=== PATIENT | female | born 1950 | race Caucasian/White ===

== ENCOUNTER 2017-01-11 08:25 | Inpatient (IN) ==
[2017-01-04 15:07] LABS: Appearance,Urine CLEAR; Bilirubin,Urine NEG (NEG); Color,Urine YELLOW; Glucose,Urine (UA) NEGATIVE (NEG); Leukocyte Esterase,Urine NEG /uL (NEG); Nitrate,Urine NEG (NEG); Protein,Urine NEG (NEG); Specific Gravity,Urine 1.019 (1.000-1.035); Urine Blood NEG mg/dL (<0.03)
[2017-01-04 15:14] LABS: Basophils # (Auto) 0 K/mcL (0.0-0.3); Basophils % (Auto) 0.5 % (0.0-2.0); Eosinophils # (Auto) 0.1 K/mcL (0.0-0.7); Granulocytes % (Auto) 55.4 % (38.0-78.0); Lymphocytes % (Auto) 33.3 % (15.5-49.0); Mean Cell Volume 77.8 fL (80.0-100.0); Mean Corpuscular Hemoglobin 25.7 pg (26.0-34.0); Monocytes # (Auto) 0.5 K/mcL (0.1-0.9); Monocytes % (Auto) 8.8 % (1.0-12.0); Platelet Count 296 K/mcL (140-440); RBC 4.58 M/mcL (4.00-5.20); Red Cell Distribution Width 15.8 % (11.5-14.5)
[2017-01-04 15:27] LABS: Blood Urea Nitrogen 25 mg/dl (8-23)
[~2017-01-11 08:25] MED LIST: ACETAMINOPHEN 500 MG TABLET PO SCH; CELECOXIB 200 MG CAPSULE PO SCH; KETOROLAC 30 MG, ROPIVACAINE HCL/PF 49.5 ML, EPINEPHrine 0.5 MG, 0.9 % SODIUM CHLORIDE ... IJ ONE; PREGABALIN 75 MG CAPSULE PO SCH; ceFAZolin 1 GM VIAL IV SCH
[2017-01-11] MEDS ORDERED: SCOPOLAMINE 1 PATCH PATCH TOPICAL ONE (09:00)
[2017-01-11] MEDS ORDERED: oxyCODONE 10 MG TAB.ER.12H PO SCH (09:45)
[2017-01-11] MEDS ORDERED: IPRATROPIUM/ALBUTEROL 3 ML AMPUL.NEB NEB ONE (10:35)
[2017-01-11] MEDS ORDERED: fentaNYL 100 MCG/2 ML VIAL IV ONE (10:56)
[2017-01-11] MEDS ORDERED: DEXAMETHASONE 10 MG/ML VIAL ONE (10:56)
[2017-01-11] MEDS ORDERED: ONDANSETRON 4 MG/2 ML VIAL ONE (10:56)
[2017-01-11] MEDS ORDERED: GENTAMICIN SULFATE 800 MG/20 ML VIAL IR ONE (11:56)
--- NOTE | 2017-01-11 12:34 | Brief Operative Note ---
Date of procedure: 01/11/17 Pre-op diagnosis: Left knee djd Post-op diagnosis: same Procedure: left tka with robot Grafts/Implants: Yes Anesthesia: GETA Findings: severe djd Surgeon: Craig Larsen Senior Editor: Israel Aguilar Estimated blood loss (cc): 20 Tourniquet Time (Minutes): 53 Specimens Removed/Pathology: none sent Condition: stable Disposition: PACU
[2017-01-11] MEDS ORDERED: MAGNESIUM HYDROXIDE 30 ML ORAL.SUSP PO PRN (12:35)
[2017-01-11] MEDS ORDERED: HYDROmorphone 2 MG/ML SYRINGE IV PRN ×2 (12:35→12:38)
[2017-01-11] MEDS ORDERED: TRANEXAMIC ACID 1,000 MG/10 ML VIAL IV SCH (12:35)
[2017-01-11] MEDS ORDERED: POLYETHYLENE GLYCOL 3350 17 GM PACKET PO PRN (12:35)
[2017-01-11] MEDS ORDERED: ONDANSETRON 4 MG/2 ML VIAL IV PRN ×2 (12:35→12:38)
[2017-01-11] MEDS ORDERED: BISACODYL 10 MG SUPP.RECT PR PRN (12:35)
[2017-01-11] MEDS ORDERED: ACETAMINOPHEN 325 MG TABLET PO PRN (12:35)
[2017-01-11] MEDS ORDERED: FLEETS ADULT ENEMA PR PRN (12:35)
[2017-01-11] MEDS ORDERED: BENZOCAINE/MENTHOL 1 LOZENGE PO PRN ×2 (12:35→12:38)
[2017-01-11] MEDS ORDERED: IPRATROPIUM/ALBUTEROL 3 ML AMPUL.NEB NEB PRN (12:38)
[2017-01-11] MEDS ORDERED: diphenhydrAMINE 50 MG/ML VIAL IV PRN (12:38)
[2017-01-11] MEDS ORDERED: ePHEDrine 50 MG/ML AMPUL IV PRN (12:38)
[2017-01-11] MEDS ORDERED: fentaNYL 100 MCG/2 ML VIAL IV PRN (12:38)
[2017-01-11] MEDS ORDERED: MEPERIDINE 25 MG/ML SYRINGE IV PRN (12:38)
[2017-01-11] MEDS ORDERED: METOPROLOL TARTRATE 5 MG/5 ML VIAL IV PRN (12:38)
[2017-01-11] MEDS ORDERED: METHOCARBAMOL 1,000 MG/10 ML VIAL IV PRN (12:38)
[2017-01-11] MEDS ORDERED: FLUMAZENIL 0.1 MG/ML ML IV PRN (12:38)
[2017-01-11] MEDS ORDERED: ATROPINE SULFATE 0.4 MG/ML VIAL IV PRN (12:38)
[2017-01-11] MEDS ORDERED: NALOXONE HCL 0.4 MG/ML VIAL IV PRN (12:38)
[2017-01-11] MEDS ORDERED: LACTATED RINGERS 1,000 ML IV SCH (12:45)
[2017-01-11] MEDS ORDERED: LABETALOL 5 MG/ML ML IV ONE (13:34)
--- NOTE | 2017-01-11 13:35 | Operative Note ---
DATE OF OPERATION: 01/11/2017 PREOPERATIVE DIAGNOSIS: Left knee degenerative arthritis. POSTOPERATIVE DIAGNOSIS: Left knee degenerative arthritis. PROCEDURE: Left total knee arthroplasty using MAUDE robot. SURGEON: Craig Larsen MD MANAGER COMPANY: Israel Aguilar PA-C ANESTHESIA: General LMA anesthesia. COMPLICATIONS: None. TOTAL TOURNIQUET TIME: 53 minutes. ESTIMATED BLOOD LOSS: About 20 mL. IMPLANTS: Cemented [place] components with a 9 mm poly insert and a 33 mm patellar button. DESCRIPTION OF PROCEDURE: The patient was brought to the operating room and put to sleep with general LMA anesthesia. Once asleep, the patient had the left leg sterilely prepped and draped in the usual sterile fashion. Once we confirmed the operative site, and timeout was performed we then exsanguinated the leg and inflated the tourniquet to 275 mmHg. With this, we made a midline incision through the [place] and exposed the joint showing severe arthritis in both medial and lateral compartments. Once this was done, we this then had two pins above and below the knee. The center of hip rotation was set, 30 points on the femur, 30 points on the tibia and intraarticular pins. The medial and lateral malleolus were registered and then we balanced the knee, both at 15 and 90 degrees of flexion. Once balanced perfectly, we then adjusted the implants. We then brought in the robot and made the distal cut, posterior chamfer cut, posterior and anterior and then anterior chamfer. We then made the tibial cut. All the bony fragments were removed. We removed the remnants of the meniscus and any spurs posteriorly. We then placed the tibial baseplate with rotation set by the preoperative plan. This was punched into place. We then also trialed the size 2 femur and a 9 mm poly. This fit very nicely. We prepared the patella measuring 22 mm in thickness, cut to 13 mm and then cemented into place a 33 mm patella, a 3 tibial baseplate with perfect for rotation and a size 2 femoral component with a 9 mm poly. Excess cement was removed. The posterior capsule was injected with 50 mL of post-inject formula. Tourniquet was deflated. Bleeding was controlled and the mid vastus approach was closed after thorough irrigation and closed this with #1 Stratafix x2, and then the skin was closed with 2-0 Vicryl and adhesive closure. The patient tolerated this well without complication. ESTEVAN:jesse Job ID: [id number] Doc ID: [id number] Craig Larsen MD
--- NOTE | 2017-01-11 13:54 | XRay Report ---
CLINICAL INFORMATION: Reason for Exam:Post-Op Total Knee COMPARISON: None. FINDINGS: Total knee prostheses is anatomically aligned. There is no osseous abnormality. Periarticular gas and soft tissue swelling seen as expected IMPRESSION: Negative Interpreted and Authenticated by: Garret Block 01/11/17
[2017-01-11] MEDS: HYDROcodone/APAP 10/325MG TABLET PO PRN ×2 (15:42→21:22)
[2017-01-11] MEDS: 0.9 % SODIUM CHLORIDE 10 ML SYRINGE IV SCH ×2 (16:27→21:00)
[2017-01-11] MEDS: 0.45 % SODIUM CHLORIDE 1,000 ML IV SCH (16:27)
[2017-01-11] MEDS: KETOROLAC 15 MG/ML VIAL IV SCH (18:33)
[2017-01-11] MEDS: ceFAZolin 1 GM VIAL IV SCH (20:15)
[2017-01-11] MEDS: cloNIDine HCL 0.1 MG TABLET PO SCH (21:00)
[2017-01-11] MEDS ORDERED: SENNOSIDES 1 TABLET PO SCH (21:00)
[2017-01-11] MEDS: DOCUSATE SODIUM 100 MG CAPSULE PO SCH (21:00)
[2017-01-11] MEDS: ASPIRIN 325 MG ENTERIC COATED TABLET PO SCH (21:00)
[2017-01-11] MEDS ORDERED: TEMAZEPAM 15 MG CAPSULE PO PRN (21:00)
[2017-01-11] MEDS: METOPROLOL SUCCINATE 25 MG TAB.XL.24H PO SCH (21:00)
[2017-01-12] MEDS: KETOROLAC 15 MG/ML VIAL IV SCH ×3 (00:19→11:52)
[2017-01-12] MEDS: ceFAZolin 1 GM VIAL IV SCH (04:29)
[2017-01-12] MEDS: 0.45 % SODIUM CHLORIDE 1,000 ML IV SCH (05:09)
[2017-01-12] MEDS: 0.9 % SODIUM CHLORIDE 10 ML SYRINGE IV SCH ×3 (05:50→12:48)
--- NOTE | 2017-01-12 07:42 | Orthopedic Progress Note ---
Subjective Patient information: Note initiated : 01/12/17 at 7:41 am Service Date, if different from initiated Date: [] Patient: Melodie Gaspar 66 y/o F admitted on 01/11/17 for Left Total Knee Arthroplasty with Robotic. Chief Complaint: [Pt is stable this morning on post operative day 1 without any significant concerns or complaints. Patients vital signs have remained stable. Patients dressing is dry and exhibits a grossly intact neurovascular and neuromotor exam. Patients 10 point ROS is otherwise negative. ] Objective Vital signs: Vital Signs Temp Pulse Resp BP BP BP Pulse Ox 01/12/17 03:54 97.7 F 58 L 18 108/55 92 01/12/17 00:00 97.9 F 66 16 113/48 92 01/11/17 19:42 97.9 F 75 16 187/88 91 01/11/17 16:35 96 01/11/17 15:52 162/94 96 01/11/17 15:00 168/105 96 01/11/17 14:30 173/100 97 01/11/17 14:15 166/101 95 01/11/17 14:02 94 01/11/17 14:00 188/84 95 01/11/17 13:45 176/94 97 01/11/17 13:42 97.8 F 88 14 176/83 94 01/11/17 13:31 86 13 191/87 94 01/11/17 13:26 90 13 194/92 97 01/11/17 13:21 82 12 163/86 99 01/11/17 13:16 92 H 13 159/101 100 01/11/17 13:11 94 H 15 166/81 100 01/11/17 13:06 95 H 14 199/82 100 01/11/17 13:01 97.9 F 91 H 16 189/81 98 01/11/17 09:00 97 F 18 182/113 97 Intake and Output 01/11/17 01/12/17 01/12/17 21:59 05:59 13:59 Intake Total 420 / 420 0 / 0 Output Total 475 / 475 Balance -55 / -55 0 / 0 Intake: Oral 420 / 420 0 / 0 Output: Void Amount 475 / 475 Other: # Voids 1 1 Weight 214 lb Intake & Output: Intake & Output 01/11/17 01/12/17 01/12/17 21:59 05:59 13:59 Intake Total 420 / 420 0 / 0 Output Total 475 / 475 Balance -55 / -55 0 / 0 Weight 214 lb Intake: Oral 420 / 420 0 / 0 Output: Void Amount 475 / 475 Other: # Voids 1 1 Incision: Yes healing Incision clean and dry: Yes Dressing: Yes clean, Yes dry Weight bearing status: full Neurological exam IM: Yes motor sensory intact, Yes neurovascular intact Extremities exam IM: Yes Foot pink and warm, Yes neurovascular intact - Labs CBC & BMP: 01/12/17 04:45 01/04/17 13:52 Labs: Orthopedic Labs 01/04/17 13:52 PT 13.1 INR 1.0 APTT 27 01/12/17 01/04/17 04:45 13:52 Hgb 11.8 L Hct 29.0 L 35.7 L Assessment and Plan (1) Hx of total knee arthroplasty Patient has been educated regarding wound care and dressings, follow up recommendations, and medication use. We will f/u with the patient within 2-3 weeks for wound check. Status: Acute
--- NOTE | 2017-01-12 07:44 | Discharge Summary ---
Ortho Discharge - TKA - Patient Instructions Diet: Regular Diet Activity: activity as tolerated, weight bearing as tolerated Total Knee Protocol: For Total Knee: Start ROM LEV with stationary bike or rocking chair. Work on gaining full extension of knee. Posterior dislocation precautions provided. Hip abductor strengthening and gait training instructions provided. Apply Cryocuff as instructed. Dressing Care: May shower in 2 days Patient Education: Total Knee Replacement (DC) Additional Instructions: Discharge Instructions: Do the exercises at home that physical therapy gave you. [facility] [employer] [phone] APPOINTMENT: WednesdayJanuary 15 @ 10:00 AM Please arrive 15 minutes early. Your orders have been sent to them; Take your photo ID, insurance cards, and current medication list with you to your first physical therapy appointment. Take your prescription to [facility] any medication or equipment (such as walker, crutches, toilet riser or C.P.M.) Wear comfortable clothing for your physical therapy. Weight bearing as tolerated. CPM for home use. You have Dermabond (a dressing with a mesh-like appearance), leave open to air. You may start showering on post op day #2. The Dermabond dressing can get wet, do not scrub dressing. Pat dry. To avoid constipation while taking any narcotic pain medication, take an over the counter stool softener/laxative. Use your Cryocuff or ice packs as directed, on for 20 minutes at a time throughout the day. This and elevation will help with pain and swelling. Call your physician for fevers above 100.5 or pain not controlled by medication. Your prescriptions are with your discharge information. Some medications were electronically transmitted to your pharmacy of choice. - Problem Maintenance (1) Hx of total knee arthroplasty Status: Acute - Follow Up Plan Follow Up Appointments: Craig Larsen MD [Physician] - 01/28/17 1:40 pm Disposition: Home, Self-Care Prognosis: Good Rehab Potential: Good I certify that the patient requires SNF services: No Overall status at discharge: patient is progressing back to baseline - Orders For Discharge Prescriptions: Aspirin [Ecotrin] 325 mg PO BID #60 Docusate Sodium [Colace] 100 mg PO BID #60 capsule HYDROcodone/APAP 10/325MG [[place] 10/325Mg] 1 - 2 tab PO Q4HP PRN #75 tablet PRN Reason: Pain
[2017-01-12] MEDS: DOCUSATE SODIUM 100 MG CAPSULE PO SCH (08:43)
[2017-01-12] MEDS: cloNIDine HCL 0.1 MG TABLET PO SCH (08:43)
[2017-01-12] MEDS: METOPROLOL SUCCINATE 25 MG TAB.XL.24H PO SCH (08:43)
[2017-01-12] MEDS: ASPIRIN 325 MG ENTERIC COATED TABLET PO SCH (08:43)
[2017-01-12] MEDS: HYDROcodone/APAP 10/325MG TABLET PO PRN (08:55)
== END 2017-01-12 13:25 | disposition home or self-care (01) | DRG 470 ==
LOC: EDBD → MEDSUR 08:25
PROVIDERS: ADMIT Orthopaedic Surgery; ATTEND Orthopaedic Surgery

== ENCOUNTER 2017-03-08 11:00 | Inpatient (IN) ==
[2017-03-08 13:06] LABS: Appearance,Urine CLEAR; Bilirubin,Urine NEG (NEG); Color,Urine STRAW; Glucose,Urine (UA) NEGATIVE (NEG); Leukocyte Esterase,Urine NEG /uL (NEG); Nitrate,Urine NEG (NEG); Protein,Urine NEG (NEG); Specific Gravity,Urine 1.006 (1.000-1.035); Urine Blood NEG mg/dL (<0.03); Urobilinogen,Urine NEG (NEG)
[2017-03-08 14:29] LABS: Blood Urea Nitrogen 22 mg/dl (8-23)
[2017-03-08 14:57] LABS: Basophils # (Auto) 0 K/mcL (0.0-0.3); Basophils % (Auto) 0.4 % (0.0-2.0); Eosinophils # (Auto) 0.2 K/mcL (0.0-0.7); Eosinophils % (Auto) 3.4 % (0.0-7.0); Granulocytes % (Auto) 62.2 % (38.0-78.0); Lymphocytes # (Auto) 1.5 K/mcL (1.5-4.8); Lymphocytes % (Auto) 27.1 % (15.5-49.0); Mean Cell Volume 78.1 fL (80.0-100.0); Mean Corpuscular HGB Conc 32.5 g/dL (31.0-36.0); Mean Corpuscular Hemoglobin 25.4 pg (26.0-34.0); Monocytes # (Auto) 0.4 K/mcL (0.1-0.9); Monocytes % (Auto) 6.9 % (1.0-12.0); Platelet Count 298 K/mcL (140-440)
[2017-03-15] MEDS ORDERED: ACETAMINOPHEN 500 MG TABLET PO SCH (05:00)
[2017-03-15] MEDS ORDERED: ceFAZolin 1 GM VIAL IV SCH (05:00)
[2017-03-15] MEDS ORDERED: CELECOXIB 200 MG CAPSULE PO SCH (05:00)
[2017-03-15] MEDS ORDERED: oxyCODONE 10 MG TAB.ER.12H PO SCH (05:00)
[2017-03-15] MEDS ORDERED: PREGABALIN 75 MG CAPSULE PO SCH (05:00)
[2017-03-15] MEDS ORDERED: SCOPOLAMINE 1 PATCH PATCH TOPICAL ONE ×2 (06:10→08:30)
[2017-03-15] MEDS ORDERED: KETOROLAC 30 MG, ROPIVACAINE HCL/PF 49.5 ML, EPINEPHrine 0.5 MG, 0.9 % SODIUM CHLORIDE ... IJ SCH (06:30)
[2017-03-15] MEDS ORDERED: DEXAMETHASONE 10 MG/ML VIAL IV ONE (07:45)
[2017-03-15] MEDS ORDERED: ONDANSETRON 4 MG/2 ML VIAL IV ONE (07:45)
[2017-03-15] MEDS ORDERED: GLYCOPYRROLATE 0.2 MG/ML VIAL IV ONE (07:45)
[2017-03-15] MEDS ORDERED: LIDOCAINE HCL/PF 100 MG/5 ML SYRINGE IV ONE (07:45)
[2017-03-15] MEDS ORDERED: TRANEXAMIC ACID 1,000 MG/10 ML VIAL IV ONE ×2 (07:45→09:04)
[2017-03-15] MEDS ORDERED: ROPIVACAINE HCL/PF 20 ML VIAL IJ ONE (07:45)
[2017-03-15] MEDS ORDERED: MIDAZOLAM 2 MG/2 ML VIAL IV ONE (07:45)
[2017-03-15] MEDS ORDERED: PROPOFOL 200 MG/20 ML VIAL IV ONE (07:45)
[2017-03-15] MEDS ORDERED: GENTAMICIN SULFATE 800 MG/20 ML VIAL IR ONE (08:02)
[2017-03-15] MEDS ORDERED: diphenhydrAMINE 50 MG/ML VIAL IV PRN (08:34)
[2017-03-15] MEDS ORDERED: FLUMAZENIL 0.1 MG/ML ML IV PRN (08:34)
[2017-03-15] MEDS ORDERED: PROMETHAZINE 25 MG/ML VIAL IV PRN (08:34)
[2017-03-15] MEDS ORDERED: MEPERIDINE 25 MG/ML SYRINGE IV PRN (08:34)
[2017-03-15] MEDS ORDERED: MEPERIDINE 50 MG/ML SYRINGE IM PRN (08:34)
[2017-03-15] MEDS ORDERED: LACTATED RINGERS 250 ML IV PRN (08:34)
[2017-03-15] MEDS ORDERED: NALOXONE HCL 0.4 MG/ML VIAL IV PRN (08:34)
[2017-03-15] MEDS ORDERED: ePHEDrine 50 MG/ML AMPUL IV PRN (08:34)
[2017-03-15] MEDS ORDERED: METHOCARBAMOL 1,000 MG/10 ML VIAL IV PRN (08:34)
[2017-03-15] MEDS ORDERED: fentaNYL 100 MCG/2 ML VIAL IV PRN (08:34)
[2017-03-15] MEDS ORDERED: BENZOCAINE/MENTHOL 1 LOZENGE PO PRN ×2 (08:34→09:04)
[2017-03-15] MEDS ORDERED: ONDANSETRON 4 MG/2 ML VIAL IV PRN ×2 (08:34→09:04)
[2017-03-15] MEDS ORDERED: IPRATROPIUM/ALBUTEROL 3 ML AMPUL.NEB NEB PRN (08:34)
[2017-03-15] MEDS ORDERED: PROMETHAZINE 25 MG/ML VIAL IM PRN (08:34)
[2017-03-15] MEDS ORDERED: LACTATED RINGERS 1,000 ML IV SCH (08:45)
--- NOTE | 2017-03-15 09:03 | Brief Operative Note ---
Date of procedure: 03/15/17 Pre-op diagnosis: Right knee djd Post-op diagnosis: same Procedure: right tka Grafts/Implants: Yes Anesthesia: GETA Findings: right knee djd Complications: none Complications Description: 03/15/17 09:03 none Surgeon: Craig Larsen Channel Program Manager: Israel Aguilar Estimated blood loss (cc): 20 Tourniquet Time (Minutes): 45 Specimens Removed/Pathology: none sent Condition: stable Disposition: PACU
[2017-03-15] MEDS ORDERED: HYDROmorphone 2 MG/ML SYRINGE IV PRN (09:04)
[2017-03-15] MEDS ORDERED: ACETAMINOPHEN 325 MG TABLET PO PRN (09:04)
[2017-03-15] MEDS ORDERED: TEMAZEPAM 15 MG CAPSULE PO PRN (09:04)
[2017-03-15] MEDS ORDERED: FLEETS ADULT ENEMA PR PRN (09:04)
[2017-03-15] MEDS ORDERED: BISACODYL 10 MG SUPP.RECT PR PRN (09:04)
[2017-03-15] MEDS ORDERED: POLYETHYLENE GLYCOL 3350 17 GM PACKET PO PRN (09:04)
[2017-03-15] MEDS ORDERED: MAGNESIUM HYDROXIDE 30 ML ORAL.SUSP PO PRN (09:04)
--- NOTE | 2017-03-15 09:34 | Operative Note ---
DATE OF OPERATION: 03/15/2017 PREOPERATIVE DIAGNOSIS: Right knee degenerative arthritis. POSTOPERATIVE DIAGNOSIS: Right knee degenerative arthritis. PROCEDURE: Right total knee arthroplasty using the [employer] robot. SURGEON: Craig Larsen MD [employer]TE MACHINE OPERATOR: Israel Aguilar PA-C ANESTHESIA: General LMA anesthesia. COMPLICATIONS: None. TOTAL TOURNIQUET TIME: 45 minutes. ESTIMATED BLOOD LOSS: Minimal. IMPLANTS: Per nurse's note. DESCRIPTION OF PROCEDURE: The patient was brought to the operating room and put to sleep with general LMA anesthesia. Once asleep, the patient had the right leg sterilely prepped and draped and the tourniquet inflated to 250 pounds of pressure. We made a midline incision, a mid vastus approach performed. We then brought in the robot after registering the center of hip rotation, the medial and lateral malleoli, registered the intra-articular pins and 30 points on the femur and tibia. We balanced the knee perfectly and then the robot made the cuts on the femur and tibia. Once this bone was cut we then removed this bone and any osteophytes and debris. We trialed the implants. These were set by the robot. Rotation and alignment was perfect. The knee started at about 19 degrees of hyperextension. This was brought to 0 degrees with an 11 mm poly, perfectly straight, perfectly balanced. We irrigated and implanted the implants with cement. Once dry, we closed the mid vastus approach with #1 Stratafix and closed the skin with 2-0 Vicryl and adhesive closure. The patient tolerated this well. No complication. TOURNIQUET TIME: 45 minutes. RBH:jesse Job ID: [id number] Doc ID: [id number] Craig Larsen MD
--- NOTE | 2017-03-15 09:49 | XRay Report ---
CLINICAL INFORMATION: Postop total knee prostheses COMPARISON: None. FINDINGS: Total knee prosthesis is anatomically aligned. No osseous abnormality. Periarticular gas and soft tissue swelling seen as expected IMPRESSION: Negative Interpreted and Authenticated by: Garret Block 03/15/17
[2017-03-15] MEDS: 0.45 % SODIUM CHLORIDE 1,000 ML IV SCH ×2 (10:30→20:33)
[2017-03-15] MEDS: KETOROLAC 15 MG/ML VIAL IV SCH ×3 (12:09→23:31)
[2017-03-15] MEDS: 0.9 % SODIUM CHLORIDE 10 ML SYRINGE IV SCH ×2 (14:52→23:31)
[2017-03-15] MEDS: ceFAZolin 1 GM VIAL IV SCH ×2 (15:19→23:31)
[2017-03-15] MEDS: HYDROcodone/APAP 10/325MG TABLET PO PRN (15:19)
[2017-03-15] MEDS: METOPROLOL SUCCINATE 25 MG TAB.XL.24H PO SCH (20:41)
[2017-03-15] MEDS: cloNIDine HCL 0.1 MG TABLET PO SCH (20:41)
[2017-03-15] MEDS: DOCUSATE SODIUM 100 MG CAPSULE PO SCH (20:41)
[2017-03-15] MEDS: ASPIRIN 325 MG ENTERIC COATED TABLET PO SCH (20:42)
[2017-03-15] MEDS ORDERED: SENNOSIDES 1 TABLET PO SCH (21:00)
[2017-03-16] MEDS: 0.9 % SODIUM CHLORIDE 10 ML SYRINGE IV SCH (05:38)
[2017-03-16] MEDS: KETOROLAC 15 MG/ML VIAL IV SCH ×2 (05:38→11:31)
[2017-03-16] MEDS: HYDROcodone/APAP 10/325MG TABLET PO PRN ×3 (05:38→10:06)
[2017-03-16] MEDS: 0.45 % SODIUM CHLORIDE 1,000 ML IV SCH (06:29)
--- NOTE | 2017-03-16 07:34 | Orthopedic Progress Note ---
Subjective Patient information: Note initiated : 03/16/17 at 7:33 am Service Date, if different from initiated Date: [] Patient: Melodie Gaspar 66 y/o F admitted on 03/15/17 for Arthroplasty, Knee, Total Right [place]. Chief Complaint: [Pt is stable this morning on post operative day 1 without any significant concerns or complaints. Patients vital signs have remained stable. Patients dressing is dry and exhibits a grossly intact neurovascular and neuromotor exam. Patients 10 point ROS is otherwise negative. ] Objective Vital signs: Vital Signs Temp Pulse Resp BP Pulse Ox 03/16/17 04:00 92 03/16/17 03:55 98.7 F 53 L 16 172/81 96 03/15/17 23:45 97.8 F 55 L 16 161/78 96 03/15/17 21:00 94 03/15/17 20:00 97.4 F 57 L 18 152/78 94 03/15/17 17:00 98 03/15/17 15:37 98.4 F 18 138/61 96 03/15/17 13:15 98.1 F 16 123/72 97 03/15/17 12:15 144/73 97 03/15/17 11:45 139/71 96 03/15/17 11:15 146/79 100 03/15/17 11:00 159/91 97 03/15/17 10:45 153/82 95 03/15/17 10:30 97.2 F 14 149/81 91 03/15/17 09:55 81 16 162/71 100 03/15/17 09:40 97.8 F 81 15 160/73 100 03/15/17 09:27 97.8 F 89 23 H 141/67 100 03/15/17 09:04 96 Intake and Output 03/15/17 03/16/17 03/16/17 21:59 05:59 13:59 Intake Total 800 / 800 100 / 100 Output Total 650 / 650 850 / 850 Balance 150 / 150 -750 / -750 Intake: Oral 400 / 400 100 / 100 GI Tube Flush 400 / 400 Output: Void Amount 650 / 650 850 / 850 Other: Meal Dinner Percent of Meal Consumed 100% Feeding Ability Independent # Voids 1 Weight 212 lb Intake & Output: Intake & Output 03/15/17 03/16/17 03/16/17 21:59 05:59 13:59 Intake Total 800 / 800 100 / 100 Output Total 650 / 650 850 / 850 Balance 150 / 150 -750 / -750 Weight 212 lb Intake: Oral 400 / 400 100 / 100 GI Tube Flush 400 / 400 Output: Void Amount 650 / 650 850 / 850 Other: Meal Dinner Percent of Meal Consumed 100% Feeding Ability Independent # Voids 1 Incision: Yes healing Incision clean and dry: Yes Dressing: Yes clean, Yes dry Weight bearing status: full Neurological exam IM: Yes motor sensory intact, Yes neurovascular intact Extremities exam IM: Yes Foot pink and warm, Yes neurovascular intact - Labs CBC & BMP: 03/16/17 04:57 03/08/17 11:24 Labs: Orthopedic Labs 03/08/17 11:25 PT 13.1 INR 1.0 APTT 03/16/17 03/08/17 04:57 11:25 Hgb 11.7 L Hct 28.5 L 35.9 L Assessment and Plan (1) Hx of total knee arthroplasty The patient has been educated regarding dressing care, Physical Therapy recommendations, home exercises, restrictions, and follow up appointments. The patient has had all necessary DME prescribed. The patient has remained stable during their hospital course. The patient was discharge with a stable exam. Status: Acute
--- NOTE | 2017-03-16 07:36 | Discharge Summary ---
Ortho Discharge - TKA - Patient Instructions Diet: Regular Diet Activity: activity as tolerated, weight bearing as tolerated Total Knee Protocol: For Total Knee: Start ROM LEV with stationary bike or rocking chair. Work on gaining full extension of knee. Posterior dislocation precautions provided. Hip abductor strengthening and gait training instructions provided. Apply Cryocuff as instructed. Dressing Care: May shower in 2 days Patient Education: Total Knee Replacement (DC) - Problem Maintenance (1) Hx of total knee arthroplasty Status: Acute - Follow Up Plan Follow Up Appointments: Craig Larsen MD [Physician] - 03/30/17 10:10 am Disposition: Home, Self-Care Prognosis: Good Rehab Potential: Good I certify that the patient requires SNF services: No Overall status at discharge: patient is progressing back to baseline - Orders For Discharge Prescriptions: Aspirin [Ecotrin] 325 mg PO BID #60 tab.ec Docusate Sodium [Colace] 100 mg PO BID #60 cap HYDROcodone/APAP 10/325MG [[place] 10/325Mg] 1 - 2 tab PO Q4HP PRN #75 tab PRN Reason: Pain Level 3-6
[2017-03-16] MEDS: ASPIRIN 325 MG ENTERIC COATED TABLET PO SCH (08:43)
[2017-03-16] MEDS: METOPROLOL SUCCINATE 25 MG TAB.XL.24H PO SCH (08:43)
[2017-03-16] MEDS: DOCUSATE SODIUM 100 MG CAPSULE PO SCH (08:43)
[2017-03-16] MEDS: cloNIDine HCL 0.1 MG TABLET PO SCH (08:44)
[2017-03-16] MEDS ORDERED: FLU VACC QS2017-18 36MOS UP/PF 60 MCG/0.5 ML SYRINGE IM ONE (10:00)
[2017-03-16] MEDS ORDERED: PNEUMOCOCCAL 23-VAL P-SAC VAC 0.5 ML VIAL IM ONE (10:00)
== END 2017-03-16 14:10 | disposition home or self-care (01) | DRG 470 ==
LOC: MEDSUR 03-15 05:03
PROVIDERS: ADMIT Orthopaedic Surgery; ATTEND Orthopaedic Surgery

== ENCOUNTER 2022-01-05 09:05 | Inpatient (IN) ==
[2021-12-30 16:29] LABS: Basophils # (Auto) 0.04 K/mcL (0.00-0.30); Basophils % (Auto) 0.7 % (0.0-2.0); Eosinophils % (Auto) 1.9 % (0.0-7.0); Hematocrit 43.4 % (34.1-44.9); Hemoglobin 13.3 g/dL (11.2-15.7); Lymphocytes # (Auto) 1.29 K/mcL (1.50-4.80); Lymphocytes % (Auto) 24.1 % (15.5-49.0); Mean Cell Volume 97.1 fL (80.0-100.0); Mean Corpuscular HGB Conc 30.6 g/dL (31.0-36.0); Mean Platelet Volume 10.2 fL (7.4-10.4); Monocytes # (Auto) 0.56 K/mcL (0.10-0.90); Monocytes % (Auto) 10.4 % (1.0-12.0); Neutrophils % (Auto) 62.7 % (38.0-78.0); Platelet Count 313 K/mcL (140-440); RBC 4.47 M/mcL (3.59-5.38); Red Cell Distribution Width 13.9 % (11.5-14.5); WBC 5.4 K/mcL (4.5-11.0)
[2021-12-30 17:29] LABS: Blood Urea Nitrogen 39 mg/dL (8-23); Calcium 9.5 mg/dL (8.6-10.4); Carbon Dioxide 26 mmol/L (22-30); Chloride 104 mmol/L (96-108); Glomerular Filtration Rate 32; Glucose 93 mg/dL (70-105)
[2021-12-30 18:17] LABS: Appearance,Urine Clear (Clear); Bacteria,Urine FEW /hpf (0); Bilirubin,Urine Negative (Negative); Color,Urine Yellow; Culture Indicated,Urine Yes; Glucose,Urine (UA) Negative (Negative); Ketones,Urine Negative (Negative); Leukocyte Esterase,Urine Small /uL (Negative); Mucus,Urine FEW /hpf; Nitrate,Urine Negative (Negative); PH,Urine 5.5 (5.0-9.0); Protein,Urine Negative (Negative); Specific Gravity,Urine 1.015 (1.000-1.035); Urine Blood Negative ery/mcL (Negative); Urine Hyaline Cast 36 /lph (0-2); Urine RBC 1 /hpf (0-3); Urine Squamous Epithelial Cell 1 /hpf (0-4); Urine WBC 4 /hpf (0-4); Urobilinogen,Urine Normal
--- NOTE | 2021-12-31 15:43 | EKG ---
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 Measurements Intervals [place] Rate: 46 P: -4 OR: 168 QRS: 9 QRSD: 116 T: 0 QT: 456 QTc: 399 Interpretive Statements Sinus bradycardia Nonspecific intraventricular conduction delay Low voltage, precordial leads Probable anteroseptal infarct, old Electronically Signed On 12-31-2021 15:43:24 PDT by Gume Thrasher D.O. /[email or web address]/[id number]
[~2022-01-05 09:05] MED LIST changes: +0.9 % SODIUM CHLORIDE 9 ML, KETOROLAC 30 MG, ROPIVACAINE HCL/PF 49.5 ML, EPINEPHrine 0.... IJ SCH; -KETOROLAC 30 MG, ROPIVACAINE HCL/PF 49.5 ML, EPINEPHrine 0.5 MG, 0.9 % SODIUM CHLORIDE ... IJ ONE; -ceFAZolin 1 GM VIAL IV SCH; +ceFAZolin 2 GM in DEXTROSE 5% IN WATER 50 ML IV SCH; +oxyCODONE 10 MG TAB.ER.12H PO SCH
--- OUTSIDE RECORDS SUMMARY | 2022-01-05 11:51 | External Medical Summary | Encounter Summary ---
:1950 Author Care Team Providers Name Role Phone Rip Casas MD Primary Care Provider [phone] Reason for Visit 3 mnth f/u CKD Assessment and Plan 1. Hyperlipidemia Follow up with labs then we will determ ine if dose change is needed pravastatin 20 mg tablet lipid panel, blood 2. Long-term drug therapy follow up labs renal function panel, serum 3. Benign essential hypertension Stable, continue current medication reg imen. furosemide 20 mg tablet Discussion Note 30 total time spent today by this tomasi jose juan for this patient, [id number] and non [id number] services combined. Patient educational handouts: No information available. Plan of Care Reminders Provider Appointments Follow up 30 03/02/2022 Rip Casas MD 10:00AM Lab Renal Function Panel, 11/25/2021 [facility] Serum (Lab) Lipid Panel, Blood 11/25/2021 [facility] (Lab) Referral None recorded. Procedures None recorded. Surgeries None recorded. Imaging None recorded. Medications Name Start Date alendronate 70 mg tablet TAKE 1 TABLET BY MOUTH ONCE WEEKLY allopurinol 100 mg tablet TAKE 1 TABLET BY MOUTH DAILY aspirin 81 mg chewable tablet Chew 1 tablet every day by oral route. Calcium 500 Daily clonidine HCl 0.1 mg tablet TAKE 1 TABLET BY MOUTH THREE TIMES DAILY (NEEDS APPT! ) colchicine 0.6 mg tablet Take one tablet by mouth daily furosemide 20 mg tablet TAKE 2 TABLETS BY MOUTH IN THE MORNING metoprolol tartrate 25 mg tablet TAKE 1 TABLET BY MOUTH TWICE DAILY multivitamin 2 daily potassium chloride ER 20 mEq tablet,extended release TAKE 1 TABLET BY MOUTH EVERY DAY pravastatin 20 mg tablet TAKE 1 TABLET BY MOUTH EVERY DAY AT BEDTIME prednisone 20 mg tablet Take 1 tablet every day by oral route in the morning for 6 days. Tylenol 500 mg capsule Take 2 tablets every day by oral route. Tylenol PM 2 at HS Vitamin D3 2000 IU Medications Administered None recorded. Vitals Height Weight BMI Blood Pressure 5 ft 2 in 201.9 lbs 36.9 kg/m2 146/70 mm[Hg] Results Lab Results Date Name Specimen Result Interpretation Description Value Range Status Address 11/25/2021 Renal BLOOD Sodium 143 135-145 Final [facility] Function mmol/L mmol/L Medical Panel, Center Serum (Lab): [address] [place] [address] BLOOD Potassium 4.5 3.5-5.1 Final [facility] mmol/L mmol/L [facility] (Lab): [address] [place] [address] BLOOD Chloride 107 98-107 Final [facility] mmol/L mmol/L [facility] (Lab): [address] [place] [address] BLOOD Total CO2 27 21-32 Final [facility] mmol/L mmol/L [facility] (Lab): [address] [place] [address] BLOOD Anion Gap 13.5 7.0-16.0 Final [facility] mmol/L mmol/L [facility] (Lab): [address] [place] [address] BLOOD Glucose 99 mg/dL 65-99 Final [facility] mg/dL [facility] (Lab): [address] [place] [address] BLOOD Calcium 9.00 8.90-10.3 Final [facility] mg/dL 0 mg/dL [facility] (Lab): [address] [place] [address] BLOOD Phosphorus 4.6 2.5-4.9 Final [facility] mg/dL mg/dL [facility] (Lab): [address] [place] [address] BLOOD Albumin 3.7 g/dL 3.5-5.0 Final [facility] g/dL [facility] (Lab): [address] [place] [address] BLOOD High Urea (BUN) 39 mg/dL 8-26 Final [facility] mg/dL [facility] (Lab): [address] [place] [address] BLOOD High Creatinine 1.35 0.60-1.30 Final [facility] mg/dL mg/dL [facility] (Lab): [address] [place] [address] BLOOD High BUN/creat 28.9 12.0-20.0 Final [place] Ratio ratio ratio [facility] (Lab): [address] [place] [address] BLOOD Egfr 47 Final [place] mL/min/1 Medical .73m2 Center (Lab): [address] [place] [address] BLOOD Egfr Header Final [facility] (Lab): [address] [place] [address] 11/25/2021 Lipid UNKNOWN Cholest 167 <=200 Final [place] Panel, mg/dL mg/dL Medical Blood Center (Lab): [address] [facility] UNKNOWN High Trigly 153 30-150 Final [place] mg/dL mg/dL [facility] Center (Lab): [address] [facility] UNKNOWN HDL-direct 47 mg/dL 29-89 Final [facility] mg/dL [facility] (Lab): [address] [facility] UNKNOWN LDL-direct 89 mg/dL 0-99 Final [place] mg/dL [facility] (Lab): [address] [facility] UNKNOWN Chol/hdl [address] [facility] (Lab): [address] [facility] UNKNOWN LDL/HDL 2 ratio Final [facility] (Lab): [address] [facility] UNKNOWN Lipid Final [facility] (Lab): [address] [facility] Allergies Code Code System Name Reaction Severity Onset 267 RxNorm Codeine Ringing in Ears Problems Name Status Onset Date Source Benign Essential Hypertension Active 07/27/2016 Abdominal Pain Active 07/27/2016 Osteoarthritis Active 11/10/2016 Bilateral Knee Pain Active 11/12/2016 Pyelonephritis Active 05/18/2017 Anemia Active 08/23/2017 Osteopenia Active 09/09/2017 Morbid Obesity Active 03/15/2019 Gout Active 08/28/2020 Chronic Kidney Disease Stage 3 Active 02/24/2021 Procedures Date Name Performed by 12/18/2016 Orthopedic Surgery Information not avai lable Notes: Lt. knee replacement. 7 Rt. knee 04/19/2006 Other Information not avai lable Notes: Gastric bypass 04/19/1999 Orthopedic Surgery Information not avai lable Notes: Back Surgery 09/17/1988 Hysterectomy Information not avai lable 04/19/1974 [employer] Surgery Information not avai lable Notes: 78 and 1980 03/19/1974 Cholecystectomy Information not avai lable Vaccine List Vaccine Type influenza, high dose seasonal 02/07/20190.5 mL influenza, recombinant, quadrIvalent,inj ectable, preservative free 10.5 mL Notes: COVID Pfizer 07/18/20, 08/08/20. B ooster Pfizer 02/22/21 Social History Tobacco Smoking Status Never Smoker What type of diet are you following? REGULAR Marital status Are you currently employed? N Are you blind or do you have Y difficulty seeing? How much tobacco do you chew? none Do you have an advanced directive? Y How many days in the past year have 0 you had a heavy drinking consumption (4+ female, 5+ male)? General stress level Low Difficulty reading? N What is your exercise level? Notes: [place]ks What is your level of alcohol Notes: R familia-once or twice a consumption? month Education Notes: [employer] Which illicit or recreational drugs none have you used? Are you deaf or do you have serious Y difficulty hearing? What is your level of caffeine Notes: 2-3 cups coffee a day consumption? Are there any guns present in your N home? 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 Yes Are you deaf or do you have serious difficulty hearing? ? Y es Past Encounters 11/25/2021 Hyperlipidemia; Long-term Drug Therapy; Benign Essential Hypertension Rip Casas MD: [address] [place] [address], [place] [id number], Ph. History of Present Illness Note: <div>Melodie is a 71 YOF with a hx of CKD, Hypertension, anemia. She is in to the clinic to f/u on her CKD. Pt states that she has been taking her BP and it has been staying the same. Pt reports feeling well with no concerns. </div> Review of Systems Comprehensive General Adult ROS Reported By: Patient Cardiovascular: Cardiovascular: no chest rosalba n, no palpitations Respiratory: Respiratory: no cough, no wh eezing, no shortness of breath Gastrointestinal: Gastrointestinal: no constip ation, no diarrhea Genitourinary: Genitourinary: no difficulty urinating, no increased frequency Neurologic: Neurologic: no loss of consc iousness, no weakness, no numbness, no seizures, no dizziness, no m igraines, no headaches, no tremor Physical Exam General Adult Exam - female Reported By: Patient Constitutional: General Appearance: healthy- appearing, well-developed, obese. Level of Distress: NAD. Ambulation : ambulation with cane Psychiatric: Insight: good judgement. Men mireya Status: active and alert, normal mood, normal affect. Orienta tion: to time, to place, to person. Memory: recent memory normal , remote memory normal Head: Head: normocephalic, atrauma tic Lungs: Respiratory effort: no dyspn ea. Auscultation: breath sounds normal, good air movement, CTA excep t as noted, no wheezing, no rales/crackles, no rhonchi Cardiovascular: Apical Impulse: not displace d. Heart Auscultation: RRR, normal S1, normal S2, no murmurs, no ru bs, no gallops. Neck vessels: no carotid bruits Breast: Breast Exam: patient deferre d exam Female : Female Exam: patient defe rred exam Musculoskeletal:: Motor Strength and Tone: nor mal motor strength, normal tone. Extremities: no cyanosis, no edema, no varicosities, no palpable cord Neurologic: Gait and Station: normal gai t, normal station. Cranial Nerves: grossly intact Skin: Inspection and palpation: no rash, no lesions, no ulcer, no abnormal nevi, no induration , no nodules, good turgor, no jaundice
--- OUTSIDE RECORDS SUMMARY | 2022-01-05 11:51 | External Medical Summary ---
:1950 Author Care Team Providers Name Role Phone RIP RIVERS MD Primary Care Provider [phone] Allergies Code Code System Name Reaction Severity Status Onset 2670 RxNorm Codeine Ringing in Ears Active Medications Name Status Start Date Stop Date Advil Liqui-Gel 200 mg capsule Completed 0 08/03/2017 2-4 daily alendronate 70 mg tablet Active Not holger ilable Aleve 220 mg capsule Completed 10/09/2019 Take by oral route. Aleve PM 220 mg-25 mg tablet Completed Take by oral route. allopurinol 100 mg tablet Active Not av ailable TAKE 1 TABLET BY MOUTH DAILY aspirin 81 mg chewable tablet Active No t available Chew 1 tablet every day by oral route. Calcium 500 Active Not available Daily cephalexin 500 mg capsule Completed 2017 ciprofloxacin 500 mg tablet Completed 07/18 clonidine HCl 0.1 mg tablet Active Not available colchicine 0.6 mg tablet Active Not holger ilable furosemide 20 mg tablet Active Not avai lable hydrocodone 10 mg-acetaminophen 325 mg tablet Completed 08/03/2017 hydrocodone 5 mg-acetaminophen 325 mg tablet Completed 05/18/2017 hydrocodone 7.5 mg-acetaminophen 325 mg tablet Completed 08/03/2017 iron 65 mg tablet Completed 07/11/2020 Take by oral route. metoprolol succinate ER 25 mg tablet,extended release 24 Complet ed 10/09/2019 hr metoprolol tartrate 25 mg tablet Active Not available TAKE 1 TABLET BY MOUTH TWICE DAILY multivitamin Active Not available 2 daily potassium chloride ER 20 mEq tablet,extended release Active Not available pravastatin 20 mg tablet Active Not holger ilable TAKE 1 TABLET BY MOUTH EVERY DAY AT BEDTIME prednisone 20 mg tablet Active Not avai lable tramadol 50 mg tablet Completed 08/03/2017 Tylenol 500 mg capsule Active Not avail able Take 2 tablets every day by oral route. Tylenol PM Active Not available 2 at HS Vitamin D3 Active Not available 1999 IU Problems Name Status Onset Date Source Benign [...] 09/17/1988 Hysterectomy Information not avai lable 04/19/1974 Supervisor Inspecting Surgery Information not avai lable Notes: 78 and 1980 03/19/1974 Cholecystectomy Information not avai lable 07/27/2016 CT, Abdomen + Pelvis, W/ Contrast [facility] [address] [place] [facility] [place] [id number] ([address]) 11/10/2016 XR, Knee, 4 or More View [facility] [address] [place] [id number] (Work Place) 08/03/2017 US, Duplex, Venous, Lower Extremity [facility] [address] [place] [id number] (Work Place) 10/09/2019 Dexa [facility] [address] [place] [facility] [place] [id number] (Work Place) 10/11/2019 MAMMO, Screening, Digital, Bilateral [facility] [address] [place] [facility] [id number] (Work Place) 10/08/2020 US, Kidney [facility] - [facility] [address], [place] [id number] (Work Place) Results Lab Results Date Name Specimen Result Interpretation Description Value Range Status Address 11/25/2021 Renal BLOOD Sodium 143 mmol/L 135-145 Final [facility] Function mmol/L Medical Panel, [facility] er (Lab): [address] [facility] BLOOD Potassium 4.5 mmol/L 3.5-5.1 Final [facility] mmol/L [facility] Center (Lab): [address] [facility] BLOOD Chloride 107 mmol/L 98-107 Final [facility] mmol/L [facility] (Lab): [address] [facility] BLOOD Total CO2 27 mmol/L 21-32 Final [facility] mmol/L [facility] Center (Lab): [address] [facility] BLOOD Anion Gap 13.5 mmol/L 7.0-16.0 Final [facility] mmol/L [facility] Center (Lab): [address] [facility] BLOOD Glucose 99 mg/dL 65-99 Final [facility] mg/dL Medical Center (Lab): [address] [place] [address] BLOOD Calcium 9.00 mg/dL 8.90-10.3 Final [facility] 0 mg/dL Medical Center (Lab): [address] [place] [address] BLOOD Phosphorus 4.6 mg/dL 2.5-4.9 Final [facility] mg/dL Medical Center (Lab): [facility] [address] [facility] BLOOD Albumin 3.7 g/dL 3.5-5.0 Final [facility] g/dL Medical Center (Lab): [address] [facility] BLOOD High Urea (BUN) 39 mg/dL 8-26 Final [facility] mg/dL Medical Center (Lab): [address] [facility] BLOOD High Creatinine 1.35 mg/dL 0.60-1.30 Final [facility] mg/dL Medical Center (Lab): [address] [place] [address] BLOOD High BUN/creat 28.9 ratio 12.0-20.0 Final [facility] Ratio ratio Medical Center (Lab): [address] [facility] BLOOD Egfr 47 Final [facility] mL/min/1.73 Medic al m2 Center (Lab): [address] [facility] BLOOD Egfr Final [facility] (Lab): [address] [place] [address] 11/25/2021 Lipid Panel, UNKNOWN Cholest 167 mg/dL <=200 F inal [facility] Blood mg/dL Medical Center (Lab): [address] [facility] UNKNOWN High Trigly 153 mg/dL 30-150 Final [facility] mg/dL Medical Center (Lab): [address] [facility] UNKNOWN HDL-direct 47 mg/dL 29-89 [facility] ([facility] [address] [facility] UNKNOWN LDL-direct 89 mg/dL 0-99 [facility] (Lab): [address] [facility] UNKNOWN Chol/hdl [address] [facility] Center (Lab): [address] [facility] UNKNOWN LDL/HDL [address] [facility] Medical Center (Lab): [address] [facility] UNKNOWN Lipid Final [facility] Center (Lab): [address] [facility] 08/26/2021 CBC W/ Diff BLOOD Wbc. 5.3 10^3/uL 5.0-11.0 F inal [facility] 10^3/uL Medical Center (Lab): [address] [facility] BLOOD Rbc 4.30 4.00-5.40 Final [facility] 10^6/uL 10^6/uL Medical Center (Lab): [address] [facility] BLOOD Hgb 12.8 g/dL 12.0-15.0 Final it man g/dL Medical Center (Lab): [address] [facility] BLOOD Hct 40.8 % 35.0-49.0 Final [facility] % Medical Center (Lab): [address] [facility] BLOOD Mcv 95 fL 80-100 fL Final [facility] Center (Lab): [address] [facility] BLOOD Mch 30 pg 26-32 pg Final [facility] Medical Center (Lab): [address] [facility] BLOOD Low Mchc 31 g/dL 32-36 Final [facility] g/dL Medical Center (Lab): [address] [facility] BLOOD Rdw 14.2 % 11.6-14.8 Final [facility] % Medical Center (Lab): [address] [facility] BLOOD Plt 316 10^3/uL 150-450 Final it man 10^3/uL Medical Center (Lab): [address] [facility] BLOOD Mpv 10.4 fL 6.5-12.0 Final [facility] fL Medical Center (Lab): [address] [facility] BLOOD Ipf % 1.40-5.80 Final [facility] % Medical Center (Lab): [address] [facility] [place] BLOOD Ipf # Final [facility] Center (Lab): [address] [facility] [place] BLOOD Auto Diff auto Final [facility] l Center (Lab): [address] [facility] [place] BLOOD Neut % 65 % 46-66 % Final [facility] (Lab): [address] [facility] [place] BLOOD High Ig % 0.60 % 0.11-0.32 Final [facility] Medical Center (Lab): [address] [facility] [place] BLOOD Low Lymphs % 23 % 24-44 % Final [facility] Center (Lab): [address] [facility] [place] BLOOD [place] % 9 % 0-11 % Final [facility] (Lab): [address] [facility] [place] BLOOD Eos % 2 % 0-4 % Final [facility] (Lab): [address] [facility] [place] BLOOD Baso % 1 % 0-2 % Final [facility] (Lab): [address] [facility] [place] BLOOD Neutrophil 3.4 10^3/uL 1.8-7.8 Final [facility] # 10^3/uL Medical Center (Lab): [address] [facility] [place] BLOOD High Ig # 0.030 0.005-0.0 Final [facility] 10^3/uL 22 Medical 10^3/uL Center (Lab): [address] [facility] [place] BLOOD Lymphs # 1.2 10^3/uL 1.0-4.8 Final [facility] 10^3/uL Medical Center (Lab): [address] [facility] [place] BLOOD Monos # 0.5 10^3/uL 0.0-0.8 Final [facility] 10^3/uL Medical Center (Lab): [address] [facility] [place] BLOOD Eos # 0.1 10^3/uL 0.0-0.5 Final [facility] 10^3/uL Medical Center (Lab): [address] [facility] [place] BLOOD Baso # 0.0 10^3/uL 0.0-0.2 Final [facility] 10^3/uL [facility] Center (Lab): [address] [facility] 08/26/2021 TSH, Serum or BLOOD Tsh 3.96 uIU/mL 0.45-5.3 3 Final [facility] Plasma uIU/mL Medical Center (Lab): [address] [place] [address] 08/26/2021 CMP, Serum or NONFASTING Sodium 140 mmol/L 135- 145 Final [facility] Plasma mmol/L Medical Center (Lab): [address] [place] [address] NONFASTING Potassium 4.5 mmol/L 3.5-5.1 Vee l [facility] mmol/L Medical Center (Lab): [address] [place] [address] NONFASTING High Chloride 108 mmol/L 98-107 Final [facility] mmol/L Medical Center (Lab): [address] [place] [address] NONFASTING Total CO2 25 mmol/L 21-32 Final [facility] mmol/L Medical Center (Lab): [address] [place] [address] NONFASTING Anion Gap 11.5 mmol/L 7.0-16.0 Fi nal [facility] mmol/L Medical Center (Lab): [address] [place] [address] NONFASTING Glucose 96 mg/dL 65-99 Final [facility] mg/dL Medical Center (Lab): [address] [place] [address] NONFASTING Calcium 9.00 mg/dL 8.90-10.3 Vee l [facility] 0 mg/dL Medical Center (Lab): [address] [place] [address] NONFASTING High Urea (BUN) 43 mg/dL 8-26 Final [facility] mg/dL Medical Center (Lab): [address] [place] [address] NONFASTING High Creatinine 1.45 mg/dL 0.60-1.30 F inal [facility] mg/dL Medical Center (Lab): [address] [place] [address] NONFASTING High BUN/creat 29.7 ratio 12.0-20.0 Fi nal [facility] Ratio ratio Medical Center (Lab): [address] [place] [address] NONFASTING Alt 16 IU/L 14-54 Final [facility] IU/L Medical Center (Lab): [address] [place] [address] NONFASTING Ast 22 IU/L 15-37 Final [facility] IU/L Medical Center (Lab): [address] [place] [address] NONFASTING Alp 42 IU/L 38-126 Final [facility] IU/L Medical Center (Lab): [address] [facility] NONFASTING Bilirubin, 0.70 mg/dL 0.10-1.00 F inal [facility] Total mg/dL Medical Center (Lab): [address] [facility] NONFASTING Low Protein, 6.2 g/dL 6.4-8.2 Final [facility] Total g/dL Medical Center (Lab): [address] [facility] NONFASTING Albumin 3.6 g/dL 3.5-5.0 Final [facility] g/dL Medical Center (Lab): [address] [facility] NONFASTING Globulin 2.6 g/dL 1.4-4.8 Final [facility] g/dL Medical Center (Lab): [address] [facility] NONFASTING A/g Ratio 1.4 ratio 1.1-1.9 Final [facility] ratio Medical Center (Lab): [address] [facility] NONFASTING Egfr 43 Final itil n mL/min/1.73 Medic al m2 Center (Lab): [address] [facility] NONFASTING Egfr Final itil n Header Medical Center (Lab): [address] [facility] 08/26/2021 Uric Acid, BLOOD High Uric Acid 6.5 mg/dL 3.0-6.0 F [facility] Serum or mg/dL Medical Plasma Center (Lab): [address] [facility] 08/26/2021 Lipid Panel, UNKNOWN High Cholest 239 mg/dL <=200 [facility] (Lab[facility] [address] [facility] UNKNOWN High Trigly 162 mg/dL 30-150 Final [facility] mg/dL Medical Center (Lab): [address] [facility] UNKNOWN HDL-direct 55 mg/dL 29-89 Final [facility] mg/dL Medical Center (Lab): [address] [facility] UNKNOWN High LDL-direct 146 mg/dL 0-99 Final [facility] mg/dL Medical Center (Lab): [address] [facility] UNKNOWN Chol/hdl [address] [facility] an Medical Center (Lab): [address] [facility] UNKNOWN LDL/HDL 3 ratio Final [facility] (Lab): [address] [facility] UNKNOWN Lipid Final [facility] (Lab): [address] [facility] 08/26/2021 Hemoglobin BLOOD Hgb a1C 5.6 % 4.8-6.0 % Vee conrad [facility] a1C + Average Med ical Glucose, QN, Cent er Blood (Lab): [address] [facility] BLOOD HA1C the ada Final [facility] He[facility] recommends Medic al a therapy Center goal of (Lab): less than 700 S 7.0% HbA1C [facility] 05/27/2021 Renal BLOOD Sodium 142 mmol/L 135-145 Final [facility] Function mmol/L Medical Panel, Serum Cent er (Lab): [address] [facility] BLOOD Potassium 4.3 mmol/L 3.5-5.1 Final [facility] mmol/L Medical Center (Lab): [address] [place] [address] BLOOD Chloride 107 mmol/L 98-107 Final [facility] mmol/L Medical Center (Lab): [address] [place] [address] BLOOD Total CO2 23 mmol/L 21-32 Final [facility] mmol/L Medical Center (Lab): [address] [place] [address] BLOOD High Anion Gap 16.3 mmol/L 7.0-16.0 Final [facility] mmol/L Medical Center (Lab): [address] [place] [address] BLOOD Glucose 93 mg/dL 65-99 Final [facility] mg/dL Medical Center (Lab): [address] [place] [address] BLOOD Low Calcium 8.80 mg/dL 8.90-10.3 Final [facility] 0 mg/dL Medical Center (Lab): [address] [place] [address] BLOOD Phosphorus 4.9 mg/dL 2.5-4.9 Final [facility] mg/dL Medical Center (Lab): [address] [place] [address] BLOOD Albumin 3.5 g/dL 3.5-5.0 Final [facility] g/dL Medical Center (Lab): [address] [place] [address] BLOOD High Urea (BUN) 38 mg/dL 8-26 Final [facility] mg/dL Medical Center (Lab): [address] [place] [address] BLOOD High Creatinine 1.44 mg/dL 0.60-1.30 Final [facility] mg/dL Medical Center (Lab): [address] [place] [address] BLOOD High BUN/creat 26.4 ratio 12.0-20.0 Final [facility] Ratio ratio Medical Center (Lab): [address] [place] [address] BLOOD Egfr 43 Final [facility] mL/min/1.73 Medic al m2 Center (Lab): [address] [place] [address] BLOOD Egfr Final [facility] (Lab): [address] [place] [address] 05/27/2021 Vitamin D, BLOOD Vitamin 73.2 NG/mL Fin al [facility] 25-Hydroxy, D,25-Hydrox Medical Total, Serum y Cent er (Lab): [address] [place] [address] BLOOD Vitamin D, [facility] [address] [place] [address] 02/24/2021 Uric Acid, BLOOD High Uric Acid 6.5 mg/dL 3.0-6.0 F inal [facility] Serum or mg/dL Medical Plasma Center (Lab): [address] [place] [address] 02/24/2021 Renal BLOOD Sodium 139 mmol/L 135-145 Final [facility] Function mmol/L Medical Panel, Serum Cent er (Lab): [address] [place] [address] BLOOD Potassium 4.1 mmol/L 3.5-5.1 Final [facility] mmol/L Medical Center (Lab): [address] [place] [address] BLOOD Chloride 106 mmol/L 98-107 Final [facility] mmol/L [facility] Center (Lab): [address] [place] [address] BLOOD Total CO2 22 mmol/L 21-32 Final [facility] mmol/L [facility] Center (Lab): [address] [place] [address] BLOOD Anion Gap 15.1 mmol/L 7.0-16.0 Final [facility] mmol/L [facility] Center (Lab): [address] [place] [address] BLOOD Glucose 98 mg/dL 65-99 Final [facility] mg/dL Medical Center (Lab): [address] [place] [address] BLOOD Calcium 9.10 mg/dL 8.90-10.3 Final [facility] 0 mg/dL Medical Center (Lab): [address] [place] [address] BLOOD Phosphorus 4.5 mg/dL 2.5-4.9 Final [facility] mg/dL Medical Center (Lab): [address] [place], [place] [address] BLOOD Albumin 3.5 g/dL 3.5-5.0 Final [facility] g/dL Medical Center (Lab): [address] [facility] BLOOD High Urea (BUN) 37 mg/dL 8-26 Final [facility] mg/dL [facility] Center (Lab): [address] [facility] BLOOD High Creatinine 1.67 mg/dL 0.60-1.30 Final [facility] mg/dL Medical Center (Lab): [address] [place] [address] BLOOD High BUN/creat 22.2 ratio 12.0-20.0 Final [facility] Ratio ratio Medical Center (Lab): [address] [facility] BLOOD Egfr 37 Final [facility] mL/min/1.73 Medic al m2 Center (Lab): [address] [facility] BLOOD Egfr Final [facility] (Lab): [address] [place] [address] 09/11/2020 Uric Acid, BLOOD High Uric Acid 10.1 mg/dL 3.0-6.0 Final [facility] Serum or mg/dL Medical Plasma Center (Lab): [address] [place] [address] 10/09/2019 CBC W/ Diff BLOOD Low Wbc. 4.6 5.0-11.0 Final [facility] 1000/mm3 1000/mm3 [facility] [address] [facility] BLOOD Rbc 4.86 4.00-5.40 Final [facility] martin/mm3 martin/mm3 [facility] (Lab[facility] [address] [facility] BLOOD Hgb 14.1 g/dL 12.0-15.0 Final [facility] g/dL Medical Center (Lab): [address] [facility] BLOOD Hct 44.3 % 35.0-49.0 Final [facility] % [facility] Center (Lab): [address] [facility] BLOOD Mcv 91 fL 80-100 fL Final [facility] Center (Lab): [address] [facility] BLOOD Mch 29 pg 26-32 pg Final [facility] Center (Lab): [address] [facility] BLOOD Mchc 32 g/dL 32-36 Final [facility] g/dL Medical Center (Lab): [facility] [address] [facility] BLOOD Rdw 12.6 % 11.6-14.8 Final [facility] Center (Lab): [address] [facility] [place] BLOOD Plt 287 150-450 Final [facility] 1000/mm3 1000/mm3 [facility] [address] [facility] [place] BLOOD Mpv 10.2 fL 6.5-12.0 Final [facility] fL Medical Center (Lab): [address] [facility] [place] BLOOD Ipf % 1.40-5.80 Final [facility] Center (Lab): [address] [facility] [place] BLOOD Ipf # Final [facility] Center (Lab): [address] [facility] [place] BLOOD Auto Diff auto Final [facility] al Center (Lab): [address] [facility] [place] BLOOD Neut % 62 % 46-66 % Final [facility] Center (Lab): [address] [facility] [place] BLOOD High Ig % 0.40 % 0.11-0.[address] [facility] (Lab): [address] [facility] [place] BLOOD Lymphs % 26 % 24-44 % Final [facility] (Lab): [address] [facility] [place] BLOOD [place] % 10 % 0-11 % Final [facility] (Lab): [address] [facility] [place] BLOOD Eos % 2 % 0-4 % Final [facility] (Lab): [address] [facility] [place] BLOOD Baso % 0 % 0-2 % Final [facility] (Lab): [address] [facility] [place] BLOOD Neutrophil 2.8 1.8-7.8 Final [facility] # 1000/mm3 1000/mm3 [facility] [address] [facility] [place] BLOOD Ig # 0.020 0.005-0.0 Final [facility] 1000/uL 22 Medical 1000/uL Center (Lab): [address] [facility] [place] BLOOD Lymphs # 1.2 1.0-4.8 Final [facility] 1000/mm3 1000/mm3 [facility] [address] [facility] [place] BLOOD Monos # 0.5 0.0-0.8 Final [facility] 1000/mm3 1000/mm3 [facility] ([facility] [address] [facility] [place] BLOOD Eos # 0.1 0.0-0.5 Final [facility] 1000/mm3 1000/mm3 Medica l Center (Lab): [address] [facility] BLOOD Baso # 0.0 0.0-0.2 Final [facility] 1000/mm3 1000/mm3 Medica l Center (Lab): [address] [place] [address] 10/09/2019 CMP, Serum or NONFASTING Sodium 140 mmol/L 135- 145 Final [facility] Plasma mmol/L Medical Center (Lab): [address] [facility] NONFASTING Potassium 4.1 mmol/L 3.5-5.1 Vee l [facility] mmol/L Medical Center (Lab): [address] [place] [address] NONFASTING Chloride 105 mmol/L 98-107 Final [facility] mmol/L Medical Center (Lab): [address] [place] [address] NONFASTING Total CO2 25 mmol/L 21-32 Final [facility] mmol/L Medical Center (Lab): [address] [place] [address] NONFASTING Anion Gap 14.1 mmol/L 7.0-16.0 Fi nal [facility] mmol/L Medical Center (Lab): [address] [facility] NONFASTING High Glucose 100 mg/dL 65-99 Final [facility] mg/dL Medical Center (Lab): [address] [place] [address] NONFASTING Low Calcium 8.80 mg/dL 8.90-10.3 Vee l [facility] 0 mg/dL Medical Center (Lab): [address] [facility] NONFASTING Urea (BUN) 26 mg/dL 8-26 Final [facility] mg/dL Medical Center (Lab): [address] [facility] NONFASTING Creatinine 1.24 mg/dL 0.60-1.30 F inal [facility] mg/dL Medical Center (Lab): [facility] [address] [facility] NONFASTING High BUN/creat 21.0 ratio 12.0-20.0 Fi nal [facility] Ratio ratio Medical Center (Lab): [address] [facility] NONFASTING Alt 20 U/L 14-54 U/L Final i tman [facility] Center (Lab): [address] [facility] NONFASTING Ast 23 U/L 15-37 U/L Final [facility] tman Medical Center (Lab): [address] [facility] NONFASTING Alp 53 U/L 38-126 Final [facility] U/L Medical Center (Lab): [address] [facility] NONFASTING Bilirubin, 0.70 mg/dL 0.10-1.00 F inal [facility] Total mg/dL Medical Center (Lab): [address] [facility] NONFASTING Protein, 6.9 g/dL 6.4-8.2 Final [facility] Total g/dL Medical Center (Lab): [address] [facility] NONFASTING Albumin 3.8 g/dL 3.5-5.0 Final [facility] g/dL Medical Center (Lab): [address] [place] [address] NONFASTING Globulin 3.1 g/dL 1.4-4.8 Final [facility] g/dL Medical Center (Lab): [address] [place] [address] NONFASTING A/g Ratio 1.2 ratio 1.1-1.9 Final [facility] ratio Medical Center (Lab): [address] [place] [address] NONFASTING Egfr 52 Final [facility] mL/min/1.73 Medic al m2 Center (Lab): [address] [place] [address] NONFASTING Egfr Final [facility] Header [facility] (Lab): [address] [place] [address] 10/09/2019 TSH, Serum or BLOOD Tsh 3.56 uIU/mL 0.45-5.3 3 Final [facility] Plasma uIU/mL Medical Center (Lab): [address] [place] [address] 11/01/2017 CBC W/ Auto BLOOD Wbc. 5.9 5.0-11.0 Final [facility] Diff 1000/mm3 1000/mm3 [facility] ([facility] [address] [place] [address] BLOOD Rbc 4.32 4.00-5.40 Final [facility] martin/mm3 martin/mm3 [facility] (Lab): [facility] [address] [facility] BLOOD Low Hgb 10.2 g/dL 12.0-15.0 Final [facility] g/dL Medical Center (Lab): [address] [facility] BLOOD Low Hct 32.3 % 35.0-49.0 Final [facility] % Medical Center (Lab): [address] [facility] BLOOD Low Mcv 75 fL 80-100 fL Final [facility] (Lab[facility] [address] [facility] [place] BLOOD Low Mch 24 pg 26-32 pg Final [facility] (Lab): [address] [facility] [place] BLOOD Mchc 32 gm/dL 32-36 Final [facility] gm/dL Medical Center (Lab): [address] [facility] [place] BLOOD High Rdw 16.2 % 11.6-14.8 Final [facility] % Medical Center (Lab): [address] [facility] [place] BLOOD Plt [phone] [facility] 1000[facility]3 [facility] [address] [facility] [place] BLOOD Mpv 7.6 fL 6.5-12.0 Final [facility] Medical Center (Lab): [address] [facility] [place] BLOOD Auto Diff auto Final [facility] differentia [facility] al Center (Lab): [address] [facility] [place] BLOOD Neut % 61 % 46-66 % Final [facility] (Lab): [address] [facility] [place] BLOOD Lymphs % 27 % 24-44 % Final [facility] (Lab): [address] [facility] [place] BLOOD [place] % 9 % 0-11 % Final [facility] (Lab): [address] [facility] [place] BLOOD Eos % 2 % 0-4 % Final [facility] (Lab): [address] [facility] [place] BLOOD Baso % 1 % 0-2 % Final [facility] (Lab): [address] [facility] [place] BLOOD Neutrophil 3.6 1.8-7.8 Final [facility] # 1000/mm3 1000/mm3 Medica Center (Lab): [address] [facility] [place] BLOOD Lymphs # 1.6 1.0-4.8 Final [facility] 1000/mm3 1000/mm3 Medica l Center (Lab): [address] [facility] [place] BLOOD Monos # 0.5 0.0-0.8 Final [facility] 1000/mm3 1000/mm3 Medica l Center (Lab): [address] [facility] [place] BLOOD Eos # 0.1 0.0-0.5 Final [facility] 1000/mm3 1000/mm3 Medica l Center (Lab): [address] [facility] BLOOD Baso # 0.0 0.0-0.2 Final [facility] 1000/mm3 1000/mm3 Medica l Center (Lab): [address] [facility] BLOOD Blood peripherial Final [facility] Smear smear Medical Review review Center (Lab): [address] [facility] BLOOD RBC red cell Final [facility] Morphology morphology Me dical Center (Lab): [address] [facility] BLOOD Anisocytos Final [facility] is Medical Center (Lab): [address] [facility] BLOOD Poikilocyt Final [facility] (Lab): [address] [facility] BLOOD Microcytes 3+ Final [facility] (Lab): [address] [facility] BLOOD Macrocytes Final [facility] (Lab): [address] [facility] BLOOD Polychroma Final [facility] (Lab): [address] [facility] BLOOD Hypochrom Final [facility] (Lab[facility] [address] [facility] BLOOD Ahsan Cells Final [facility] (Lab): [address] [facility] BLOOD Acanthocyt Final [facility] (Lab): [address] [facility] BLOOD Basophilic Final [facility] (Lab): [address] [facility] BLOOD Elliptocyt Final [facility] (Lab): [address] [facility] BLOOD Rouleaux Final [facility] (Lab): [address] [facility] BLOOD Bite Cells Final [facility] (Lab): [address] [facility] BLOOD Schistocyt Final [facility] (Lab): [address] [facility] BLOOD Spherocyte Final [facility] (Lab): [address] [facility] BLOOD Stomatocyt Final [facility] (Lab): [address] [facility] BLOOD Target Final [facility] (Lab): [address] [facility] BLOOD Tear Drop Final [facility] (Lab): [address] [facility] BLOOD Oakley Final [facility] [place] [facility] (Lab): [address] [facility] BLOOD Pappenheim Final [facility] er Bodies [facility] (Lab): [address] [facility] BLOOD Sickle Final [facility] (Lab[facility] [address] [facility] BLOOD WBC automated Final [facility] Morphology differentia M edical l verified Center by slide (Lab): review [address] [facility] BLOOD Toxic Final [facility] Granulation Medic al Center (Lab): [address] [facility] BLOOD Toxic Final [facility] Vacuolation Medic al Center (Lab): [address] [facility] BLOOD Dohle Final [facility] Bodies [facility] (Lab): [address] [facility] BLOOD Neut Final [facility] Morphology [facility]ica l Center (Lab): [address] [facility] BLOOD Reactive Final [facility] Lymphs [facility] (Lab): [address] [facility] BLOOD Denatured Final [facility] Neut [facility] (Lab): [address] [facility] BLOOD Lrg Gran Final [facility] Lymphocyte [facility] l Center (Lab): [address] [facility] BLOOD Smudge Final [facility] Cells Medical Center (Lab): [address] [facility] BLOOD Platelet platelet Final [facility] Evaluation evaluation Me dical Center (Lab): [address] [facility] BLOOD Platelet normal normal Final [facility] Evaluation Medica l Center (Lab): [address] [facility] BLOOD Giant absent Final [facility] Platelet Medical Center (Lab): [address] [facility] 08/24/2017 Fecal Occult FECES Ifob negative negative Fin [facility] Blood, Medical Immunoassay, Cent er Stool (Lab): [address] [facility] 08/23/2017 Fecal Occult FECES Ifob negative negative Fin [facility] Blood, Medical Immunoassay, Cent er Stool (Lab): [address] [facility] 08/03/2017 CMP, Serum or NONFASTING Sodium 141 mmol/L 135- 145 Final [facility] Plasma mmol/L Medical Center (Lab): [address] [facility] NONFASTING Potassium 4.0 mmol/L 3.5-5.1 Vee l [facility] mmol/L [facility] Center (Lab): [address] [facility] NONFASTING High Chloride 108 mmol/L 98-107 Final [facility] mmol/L [facility] Center (Lab): [address] [facility] NONFASTING Total CO2 25 mmol/L 21-32 Final [facility] mmol/L [facility] Center (Lab): [address] [facility] NONFASTING Anion Gap 12.0 mmol/L 7.0-16.0 Fi nal [facility] mmol/L Medical Center (Lab): [address] [facility] NONFASTING High Glucose 103 mg/dL 65-99 Final [facility] mg/dL Medical Center (Lab): [address] [facility] NONFASTING Low Calcium 8.7 mg/dL 8.9-10.3 Final [facility] mg/dL Medical Center (Lab): [facility] NONFASTING Urea (BUN) 23 mg/dL 8-26 Final [facility] mg/dL Medical Center (Lab): [address] [place] [address] NONFASTING Creatinine 0.95 mg/dL 0.60-1.30 F inal [facility] mg/dL Medical Center (Lab): [address] [facility] NONFASTING High BUN/creat 24.2 ratio 12.0-20.0 Fi nal [facility] Ratio ratio Medical Center (Lab): [address] [facility] NONFASTING Low Alt 11 U/L 14-54 U/L [facility]Lab): [address] [facility] NONFASTING Ast 18 U/L 15-37 U/L Final [facility] tman [facility] Center (Lab): [address] [facility] NONFASTING Alp 63 U/L 38-126 Final [facility] U/L Medical Center (Lab): [address] [facility] NONFASTING Bilirubin, 0.70 mg/dL 0.10-1.00 F inal [facility] Total mg/dL Medical Center (Lab): [facility] [address] [facility] NONFASTING Protein, 6.9 gm/dL 6.4-8.2 Final [facility] Total gm/dL Medical Center (Lab): [address] [facility] NONFASTING Albumin 3.5 g/dL 3.5-5.0 Final [facility] g/dL Medical Center (Lab): [facility] [address] [facility] NONFASTING Globulin 3.4 gm/dL 1.4-4.8 Final [facility] gm/dL Medical Center (Lab): [address] [facility] NONFASTING Low A/g Ratio 1.0 ratio 1.1-1.9 Final [facility] ratio Medical Center (Lab): [address] [facility] NONFASTING Egfr >60 Final [facility] n mL/min/1.73 [facility] al m2 Center (Lab): [address] [facility] NONFASTING Egfr Final [facility] n [facility] Medical Center (Lab): [address] [facility] 08/03/2017 TSH, Serum or BLOOD Tsh 4.42 uIU/mL 0.45-5.3 3 Final [facility] Plasma uIU/mL Medical Center (Lab): [address] [facility] 08/03/2017 Iron, Serum BLOOD Iron 51 ug/dL 35-180 Final [facility] ug/dL Medical Center (Lab): [address] [facility] 08/03/2017 Lipid Panel, FASTING High Cholest 205 mg/dL <=200 F inal [facility] Blood mg/dL Medical Center (Lab): [address] [facility] FASTING Trigly 123 mg/dL 30-150 Final [facility] mg/dL Medical Center (Lab): [address] [facility] FASTING HDL-direct 57 mg/dL 29-89 Final [facility] mg/dL [facility] Center (Lab): [address] [facility] FASTING LDL-calc 123 mg/dL Final [facility] (Lab): [address] [facility] FASTING Chol/hdl 4 ratio Final itm an Medical Center (Lab): [address] [facility] FASTING LDL/HDL 2 ratio Final [facility] Ratio [facility] Center (Lab): [address] [facility] FASTING Lipid Final itman [facility] Medical Center (Lab): [address] [facility] 08/03/2017 CBC W/ Auto BLOOD Wbc. 6.2 5.0-11.0 Final [facility] Diff 1000/mm3 1000/mm3 [facility] ([facility] [address] [facility] BLOOD Rbc 4.70 4.00-5.40 Final [facility] martin/mm3 martin/mm3 [facility] (Lab): [address] [facility] BLOOD Low Hgb 11.1 g/dL 12.0-15.0 Final it man g/dL Medical Center (Lab): [address] [facility] [place] BLOOD Hct 36.1 % 35.0-49.0 Final [facility] % Medical Center (Lab): [address] [facility] BLOOD Low Mcv 77 fL 80-100 fL Final [facility] (Lab): [address] [facility] [place] BLOOD Low Mch 24 pg 26-32 pg Final [facility] (Lab): [address] [facility] [place] BLOOD Low Mchc 31 gm/dL 32-36 Final [facility] gm/dL Medical Center (Lab): [address] [facility] [place] BLOOD High Rdw 16.5 % 11.6-14.8 Final [facility] % Medical Center (Lab): [address] [facility] BLOOD Plt 329 150-450 Final [facility] 1000/mm3 1000/mm3 [facility] (Lab[facility] [address] [facility] BLOOD Mpv 8.2 fL 6.5-12.0 Final [facility] Medical Center (Lab): [address] [facility] BLOOD Auto Diff auto Final [facility] differentia [facility] al Center (Lab): [address] [facility] BLOOD Neut % 64 % 46-66 % Final [facility] (Lab): [address] [facility] [place] BLOOD Lymphs % 25 % 24-44 % Final [facility] (Lab): [address] [facility] BLOOD [place] % 8 % 0-11 % Final [facility] (Lab): [address] [facility] [place] BLOOD Eos % 3 % 0-4 % Final [facility] (Lab): [address] [facility] [place] BLOOD Baso % 0 % 0-2 % Final [facility] (Lab): [address] [facility] [place] BLOOD Neutrophil 3.9 1.8-7.8 Final [facility] man s # 1000/mm3 1000/mm3 Medica Center (Lab): [address] [facility] BLOOD Lymphs # 1.5 1.0-4.8 Final [facility] 1000/mm3 1000/mm3 [facility] Center (Lab): [address] [facility] [place] BLOOD Monos # 0.5 0.0-0.8 Final [facility] 1000/mm3 1000/mm3 Medica l Center (Lab): [address] [facility] [place] BLOOD Eos # 0.2 0.0-0.5 Final [facility] 1000/mm3 1000/mm3 Medica l Center (Lab): [address] [facility] [place] BLOOD Baso # 0.0 0.0-0.2 Final [facility] 1000/mm3 1000/mm3 Medica l Center (Lab): [address] [facility] [place] BLOOD Blood peripherial Final [facility] Smear smear Medical Review review Center (Lab): [address] [facility] [place] BLOOD RBC Morph normal Final [facility] (Lab): [address] [facility] [place] BLOOD Anisocytos 1+ Final [facility] (Lab): [address] [facility] [place] BLOOD Poikilocyt 2+ Final [facility] os [facility] (Lab): [address] [facility] [place] BLOOD Microcytes 1+ Final [facility] (Lab): [address] [facility] [place] BLOOD Macrocytes 2+ Final [facility] Center (Lab): [address] [facility] [place] BLOOD Polychroma Final [facility] (Lab[facility] [address] [facility] [place] BLOOD Hypochrom 1+ [facility] (Lab[facility] [address] [facility] [place] BLOOD Ahsan Cells 1+ Final [facility] Center (Lab): [address] [facility] [place] BLOOD [facility]anthocyt [facility] (Lab): [address] [facility] [place] BLOOD Basophilic [facility] [address] [facility] [place] BLOOD Elliptocyt 2+ Final [facility] (Lab): [address] [facility] [place] BLOOD Rouleaux Final [facility] (Lab): [address] [facility] [place] BLOOD Bite Cells 1+ Final [facility] Center (Lab): [address] [facility] [place] BLOOD Schistocyt Final [facility] (Lab): [address] [facility] [place] BLOOD Spherocyte Final [facility] s [facility] (Lab): [address] [facility] BLOOD Stomatocyt Final [facility] es [facility] (Lab): [address] [facility] BLOOD Target Final [facility] (Lab): [address] [facility] BLOOD Tear Drop 1+ Final [facility] Cells [facility] (Lab): [address] [facility] BLOOD Oakley Final [facility] [place] [facility] (Lab): [address] [facility] BLOOD [place] Final [facility] er Bodies Medical Center (Lab): [address] [facility] BLOOD Sickle Final [facility] Cells [facility] (Lab): [address] [facility] BLOOD WBC automated Final [facility] Morphology differentia M edical l verified Center by slide (Lab): review [address] [facility] BLOOD Toxic Final [facility] Granulation Medic al Center (Lab): [address] [facility] BLOOD Toxic Final [facility] Vacuolation Medic al Center (Lab): [address] [facility] BLOOD Dohle Final [facility] Bodies [facility] (Lab): [address] [facility] BLOOD Neut normal Final [facility] Morphology cells seen Me dical Center (Lab): [address] [facility] BLOOD Reactive Final [facility] Lymphs [facility] (Lab[facility] [address] [facility] BLOOD Denatured Final [facility] Neut [facility] Center (Lab): [address] [facility] BLOOD Lrg Gran Final [facility] Lymphocyte Medica l Center (Lab): [address] [facility] BLOOD Smudge Final [facility] Cells [facility] (Lab): [address] [facility] BLOOD Platelet platelet Final [facility] Evaluation evaluation Me dical Center (Lab): [address] [facility] BLOOD Platelet normal normal Final [facility] Evaluation Medica l Center (Lab): [address] [facility] BLOOD Giant absent absent Final [facility] Platelet [facility] Center (Lab): [address] [facility] 08/04/2016 Creatinine, BLOOD Creatinine 1.29 mg/dL 0.60-1 .30 Final [facility] Serum or mg/dL Medical Plasma Center (Lab): [address] [facility] BLOOD Egfr 50 Final [facility] mL/min/1.73 Medic al m2 Center (Lab): [address] [facility] BLOOD Egfr Final [facility] Header [facility] (Lab): [address] [facility] 06/30/2016 BMP, Serum or NONFASTING Sodium 138 mmol/L 135- 145 Final [facility] Plasma mmol/L Medical Center (Lab): [address] [facility] NONFASTING Potassium 3.7 mmol/L 3.5-5.1 Vee l [facility] mmol/L Medical Center (Lab): [address] [facility] NONFASTING Chloride 103 mmol/L 98-107 Final [facility] mmol/L [facility] Center (Lab): [address] [facility] NONFASTING Total CO2 26 mmol/L 21-32 Final [facility] mmol/L [facility] Center (Lab): [address] [facility] NONFASTING Anion Gap 12.7 mmol/L 7.0-16.0 Fi nal [facility] mmol/L Medical Center (Lab): [address] [facility] NONFASTING High Glucose 102 mg/dL 65-99 Final [facility] mg/dL Medical Center (Lab): [address] [facility] NONFASTING Low Calcium 8.4 mg/dL 8.9-10.3 Final [facility] mg/dL Medical Center (Lab): [address] [facility] NONFASTING Urea (BUN) 24 mg/dL 8-26 Final [facility] mg/dL Medical Center (Lab): [address] [facility] NONFASTING Creatinine 0.91 mg/dL 0.60-1.30 F inal [facility] mg/dL Medical Center (Lab): [address] [facility] NONFASTING High BUN/creat 26.4 ratio 12.0-20.0 Fi nal [facility] Ratio ratio Medical Center (Lab): [address] [facility] NONFASTING Egfr >60 Final [facility] mL/min/1.73 Medic al m2 Center (Lab): [address] [facility] NONFASTING Egfr Final [facility] Header [facility] (Lab): [address] [facility] 06/30/2016 C-reactive BLOOD C Reactive <0.5 mg/dL <=0.5 Final [facility] Protein, Prot mg/dL Medical Quantitative Cent er (Lab): [address] [facility] 06/30/2016 CBC W/ Auto BLOOD Wbc. 6.9 5.0-11.0 Final [facility] Diff 1000/mm3 1000/mm3 [facility] (Lab): [address] [facility] BLOOD Rbc 4.99 4.00-5.40 Final [facility] martin/mm3 martin/mm3 [facility] Center (Lab): [address] [facility] BLOOD Hgb 12.0 gm/dL 12.0-15.0 Final [facility] gm/dL Medical Center (Lab): [address] [facility] BLOOD Hct 37.5 % 35.0-49.0 Final [facility] % Medical Center (Lab): [address] [facility] BLOOD Low Mcv 75 fL 80-100 fL Final [facility] (Lab): [address] [facility] BLOOD Low Mch 24 pg 26-32 pg Final [facility] Center (Lab): [address] [facility] BLOOD Mchc 32 gm/dL 32-36 Final [facility] gm/dL Medical Center (Lab): [address] [facility] BLOOD High Rdw 16.3 % 11.6-14.8 Final [facility] % Medical Center (Lab): [address] [facility] BLOOD Plt 343 150-450 Final [facility] 1000/mm3 1000/mm3 [facility] Center (Lab): [address] [facility] BLOOD Mpv 8.5 fL 6.5-12.0 Final [facility] fL Medical Center (Lab): [address] [facility] BLOOD Auto Diff auto Final [facility] different[facility] Center (Lab): [address] [facility] BLOOD Neut % 65 % 46-66 % Final [facility] (Lab): [address] [facility] BLOOD Lymphs % 24 % 24-44 % Final [facility] (Lab): [address] [facility] BLOOD [place] % 8 % 0-11 % Final [facility] (Lab): [address] [facility] BLOOD Eos % 3 % 0-4 % Final [facility] Center (Lab): [address] [facility] BLOOD Baso % 1 % 0-2 % Final [facility] (Lab): [address] [facility] [place] BLOOD Neutrophil 4.5 1.8-7.8 Final G[facility] man s # 1000/mm3 1000/mm3 Medica l Center (Lab): [address] [facility] [place] BLOOD Lymphs # 1.6 1.0-4.8 Final [facility] 1000/mm3 1000/mm3 Medica l Center (Lab): [address] [facility] [place] BLOOD Monos # 0.6 0.0-0.8 Final [facility] 1000/mm3 1000/mm3 Medica l Center (Lab): [address] [facility] [place] BLOOD Eos # 0.2 0.0-0.5 Final [facility] 1000/mm3 1000/mm3 Medica l Center (Lab): [address] [facility] [place] BLOOD Baso # 0.0 0.0-0.2 Final [facility] 1000/mm3 1000/mm3 Medica l Center (Lab): [address] [facility] [place] BLOOD Blood peripherial Final [facility] Smear smear Medical Review review Center (Lab): [address] [facility] [place] BLOOD RBC red cell Final itman Morphology morphology De dical Center (Lab): [address] [facility] [place] BLOOD Anisocytos Final [facility] is [facility] (Lab): [address] [facility] [place] BLOOD Microcytes 2+ Final [facility] (Lab): [address] [facility] [place] BLOOD Macrocytes Final [facility] (Lab): [address] [facility] BLOOD Polychroma Final [facility] (Lab): [address] [facility] [place] BLOOD Hypochrom Final [facility] (Lab): [address] [facility] [place] BLOOD Acanthocyt Final [facility] (Lab): [address] [facility] [place] BLOOD Basophilic Final [facility] (Lab): [address] [facility] [place] BLOOD Crenated Final [facility] Cells [facility] (Lab): [address] [facility] [place] BLOOD Elliptocyt Final [facility] es [facility] (Lab): [address] [facility] [place] BLOOD Rouleaux Final [facility] (Lab): [address] [facility] BLOOD Schistocyt Final [facility] (Lab): [address] [facility] BLOOD Spherocyte Final [facility] s [facility] (Lab): [address] [facility] [place] BLOOD Stomatocyt Final [facility] es [facility] (Lab): [address] [facility] BLOOD Target Final [facility] (Lab): [address] [facility] BLOOD Tear Drop Final [facility] Cells [facility] (Lab): [address] [facility] BLOOD [place] Final [facility] (Lab): [address] [facility] BLOOD Chiki Final [facility]man Bodies Medical Center (Lab): [address] [facility] BLOOD Oakley [facility] [place] [facility] (Lab): [address] [facility] BLOOD [place] Final itm an er Bodies Medical Center (Lab): [address] [facility] BLOOD Sickle Final [facility] Cells Medical Center (Lab): [address] [facility] BLOOD Siderocyte Final [facility] s [facility] (Lab): [address] [facility] BLOOD WBC auto diff Final itman Morphology verified by M codyical slide Center review (Lab): [address] [facility] BLOOD Toxic Final [facility] Granulation Medic al Center (Lab): [address] [facility] BLOOD Toxic Final [facility] Vacuolation Medic al Center (Lab): [address] [facility] BLOOD Dohle Final [facility] Bodies [facility] (Lab): [address] [facility] BLOOD Reactive Final [facility] Lymphs Medical Center (Lab): [address] [facility] BLOOD Smudge Final [facility] Cells Medical Center (Lab): [address] [facility] BLOOD Platelet platelet Final [facility] an Evaluation evaluation De dical Center (Lab): [address] [facility] Past Encounters 11/25/2021 Hyperlipidemia; Long-term Drug Therapy; Benign Essential Hypertension Rip Rivers MD: [address] [place] [phone], Ph. 08/26/2021 Benign Essential Hypertension; History o f Total Knee Arthroplasty; Chronic Kidney Disease Stage 3; Long-term Drug Therapy; Hyperlipidemia Screening; Diabetes Mellitus Screening; Gout Rip Rivers MD: [address] [place] [address], [place] [id number], Ph. 05/27/2021 Chronic Kidney Disease Stage 3; Vitamin D Deficiency Rip Rivers MD: [address] [place] [address], [place] [phone], Ph. 02/24/2021 Rip Rivers MD: [address] [place] [address], [place] [phone], Ph. 02/24/2021 Gout; Chronic Kidney Disease Stage 3; Be nign Essential Hypertension; Administration of Influenza Vaccine Rip Rivers MD: [address] [place] [address], [place] [phone], Ph. 08/28/2020 Gout; Edema of Lower Extremity; Long-ter m Drug Therapy; Hyperlipidemia Rip Rivers MD: [address] [place] [address], [place] [phone], Ph. 07/11/2020 Benign Essential Hypertension; Bilateral Knee Pain; Immunization Advised Rip Rivers MD: [address] [place] [address], [place] [id number], Ph. Social History Tobacco Smoking Status Never Smoker Vaccine List Vaccine Type influenza, high dose seasonal 02/07/20190.5 mL influenza, recombinant, quadrIvalent,inj ectable, preservative free 10.5 mL Notes: COVID Pfizer 07/18/20, 08/08/20. B ooster Pfizer 02/22/21 Plan of Care Reminders Provider Appointments None recorded. Lab None recorded. Referral None recorded. Procedures None recorded. Surgeries None recorded. Imaging None recorded. Vitals 11/25/2021 11:00AM Follow Up 30 Height Weight BMI Blood Pressure 5 ft 2 in 201.9 lbs 36.9 kg/m2 146/70 mm[Hg] 08/26/2021 10:30AM Follow Up 30 Height Weight BMI Blood Pressure 5 ft 2 in 200 lbs 36.6 kg/m2 120/68 mm[Hg] 05/27/2021 11:15AM Follow Up 45 Height Weight BMI Blood Pressure 5 ft 2 in 203.5 lbs 37.2 kg/m2 140/76 mm[Hg] 02/24/2021 10:45AM OFFICE VISIT 45 Height 5 ft 2 in 08/28/2020 03:00PM OFFICE VISIT 30 Height Weight BMI Blood Pressure 5 ft 2 in 206.5 lbs 37.8 kg/m2 148/80 mm[Hg] 07/11/2020 11:00AM OFFICE VISIT 45 Height Weight BMI Blood Pressure 5 ft 2 in 211.3 lbs 38.6 kg/m2 (1) 136/98 mm[H g] (2) 150/90 mm[Hg ] 10/09/2019 01:30PM OFFICE VISIT 45 Height Weight BMI Blood Pressure 5 ft 2 in 218.3 lbs 39.9 kg/m2 (1) 188/100 mm[ Hg] (2) 160/90 mm[Hg ] 03/20/2019 03:45PM OFFICE VISIT 60 Height Weight BMI Blood Pressure 5 ft 2 in 222.8 lbs 40.8 kg/m2 160/98 mm[Hg] 08/03/2017 09:30AM Preventive Care Visit 60 Height Weight BMI Blood Pressure 5 ft 2 in 202.2 lbs 37 kg/m2 192/100 mm[Hg] 05/18/2017 11:00AM OFFICE VISIT 30 Height Weight BMI Blood Pressure 5 ft 2 in 203.4 lbs 37.2 kg/m2 182/82 mm[Hg] 07/27/2016 10:00AM OFFICE VISIT 45 Height Weight BMI Blood Pressure 5 ft 2 in 211.8 lbs 38.7 kg/m2 186/92 mm[Hg] 07/02/2016 01:30PM BLOOD PRESSURE CHECK Height Blood Pressure 5 ft 2 in (1) 148/79 mm[Hg] (2) 150/80 mm[Hg] 06/30/2016 01:00PM OFFICE VISIT 30 Height Weight BMI Blood Pressure 5 ft 2 in 206 lbs 37.7 kg/m2 202/104 mm[Hg]
--- OUTSIDE RECORDS SUMMARY | 2022-01-05 11:51 | External Medical Summary | Clinical Summary ---
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 SULFATE-K Christy 17.5-3.13-1.6 SULFATE-MG Nalini seun GM/177ML SOLN SULF Medications Administered No information available. Allergies, Adverse Reactions, Alerts No information available. Results No information available. Plan of Care No information available. Procedures No information available. Vital Signs No information available. Immunizations No information available. Advance Directives No information available.
[2022-01-05] MEDS ORDERED: SCOPOLAMINE 1 PATCH PATCH TOPICAL PRN (12:00)
[2022-01-05] MEDS ORDERED: IPRATROPIUM/ALBUTEROL 3 ML AMPUL.NEB NEB PRN ×2 (12:00→14:32)
[2022-01-05] MEDS ORDERED: ONDANSETRON 4 MG/2 ML VIAL ONE (13:55)
[2022-01-05] MEDS ORDERED: diphenhydrAMINE 50 MG/ML VIAL ONE (13:55)
[2022-01-05] MEDS ORDERED: SUCCINYLCHOLINE 20 MG/ML ML IV ONE (13:55)
[2022-01-05] MEDS ORDERED: GLYCOPYRROLATE 0.2 MG/ML VIAL IV ONE (13:55)
[2022-01-05] MEDS ORDERED: PROPOFOL 200 MG/20 ML VIAL IV ONE (13:55)
[2022-01-05] MEDS ORDERED: FAMOTIDINE/PF 20 MG/2 ML VIAL IV ONE (13:55)
[2022-01-05] MEDS ORDERED: ROPIVACAINE HCL/PF 30 ML VIAL IJ ONE (13:55)
[2022-01-05] MEDS ORDERED: KETAMINE 50 MG/ML Syringe (ANEST) IV ONE (13:55)
[2022-01-05] MEDS ORDERED: DEXAMETHASONE 10 MG/ML VIAL ONE (13:55)
[2022-01-05] MEDS ORDERED: METOPROLOL TARTRATE 5 MG/5 ML VIAL IV ONE (13:55)
[2022-01-05] MEDS ORDERED: TRANEXAMIC ACID 1,000 MG/10 ML VIAL ONE (13:55)
[2022-01-05] MEDS ORDERED: LIDOCAINE HCL/PF 100 MG/5 ML SYRINGE IV ONE (13:55)
[2022-01-05] MEDS ORDERED: METOCLOPRAMIDE 10 MG/2 ML VIAL ONE (13:55)
[2022-01-05] MEDS ORDERED: MAGNESIUM SULFATE 2 GM/50 ML BAG IV ONE (13:55)
--- NOTE | 2022-01-05 14:20 | Discharge Plan ---
Discharge Instructions - TKA Patient Instructions Total Knee Protocol: For Total Knee: Start ROM LEV with stationary bike or rocking chair. Work on gaining full extension of knee. Posterior dislocation precautions provided. Hip abductor strengthening and gait training instructions provided. Apply Cryocuff as instructed. Additional Dressing Instructions: Leave Zip line closure patch intact until followup --May shower at anytime. Discharge Plan Patient/Caregiver Discharge Instructions Activity: ambulate only with your walker and as per physical therapy Diet: Regular Diet Prescriptions: New docusate sodium 100 mg capsule 100 mg PO BID Qty: 60 0RF aspirin [Ecotrin Low Strength] 81 mg tablet,delayed release (DR/EC) 81 mg PO BID Qty: 60 0RF hydrocodone-acetaminophen 10-325 mg tablet 1 - 2 tab PO Q4H PRN (Reason: pain) Qty: 75 0RF No Action clonidine HCl [Catapres] 0.1 MG tablet 0.1 mg PO BID multivitamin Tablet 2 tab PO DAILY alendronate 70 mg Tablet 70 mg PO SA@0730 allopurinol 100 mg Tablet 100 mg PO DAILY acetaminophen 500 mg Tablet 1,500 mg PO DAILY calcium carbonate [Calcium 500] 500 mg calcium (1,250 mg) Tablet 1,000 mg PO DAILY ascorbic acid (vitamin C) [Vitamin C] 250 mg Tablet 500 mg PO DAILY ferrous sulfate 325 mg (65 mg iron) Tablet 325 mg PO BIDCC Label Comments: TAKING FOR SURGERY pravastatin 20 mg Tablet 20 mg PO HS furosemide 20 mg Tablet 40 mg PO DAILY diphenhydramine-acetaminophen [Acetaminophen PM] 25-500 mg Tablet 3 tab PO HS metoprolol tartrate 25 mg Tablet 25 mg PO BID cholecalciferol (vitamin D3) [Vitamin D3] 25 mcg (1,000 unit) Tablet 50 mcg PO DAILY potassium chloride 20 mEq Tablet Extended Release 20 meq PO QAMCC psyllium husk [Metamucil] 0.4 gram Capsule 0.8 g PO DAILY aspirin 81 mg Tablet,Chewable 81 mg PO DAILY Label Comments: HOLDING FOR SURGERY Other Ambulatory Orders: CPM Discharge Order (ONCE) Location: None Selected Ordered By: Israel Aguilar Physical Therapy DC - TKA (Routine) Location: None Selected Ordered By: Israel Aguilar Toilet Riser Discharge Order (ONCE) Location: None Selected Ordered By: Israel Aguilar Walker (ONCE) Location: None Selected Ordered By: Israel Aguilar Follow Up Plan Follow up with: Craig Larsen MD [Physician] - 01/20/22 10:00 am Israel Aguilar PA-C [Physician Chief Clinical Dietitian] - Patient Disposition: Home, Self-Care Prognosis: Good Rehab Potential: Good I certify that the patient requires SNF services: No Overall status at discharge: patient is progressing back to baseline Discharge Orders: Discharge Order (Routine); Ordered 01/06/22 Ordered By: Israel Aguilar
[2022-01-05] MEDS ORDERED: METOPROLOL TARTRATE 5 MG/5 ML VIAL IV PRN (14:32)
[2022-01-05] MEDS ORDERED: LABETALOL 5 MG/ML ML IV PRN (14:32)
[2022-01-05] MEDS ORDERED: MEPERIDINE 25 MG/ML VIAL IV PRN (14:32)
[2022-01-05] MEDS ORDERED: ONDANSETRON 4 MG/2 ML VIAL IV PRN ×2 (14:32→14:55)
[2022-01-05] MEDS ORDERED: HYDROmorphone 0.5 MG/0.5 ML SYRINGE IV PRN (14:32)
[2022-01-05] MEDS ORDERED: METOCLOPRAMIDE 10 MG/2 ML VIAL IV PRN (14:32)
[2022-01-05] MEDS ORDERED: LACTATED RINGERS 250 ML IV PRN (14:32)
[2022-01-05] MEDS ORDERED: PROMETHAZINE 25 MG/ML VIAL IV PRN (14:32)
[2022-01-05] MEDS ORDERED: NALOXONE HCL 0.4 MG/ML VIAL IV PRN (14:32)
[2022-01-05] MEDS ORDERED: METHOCARBAMOL 1,000 MG/10 ML VIAL IV PRN (14:32)
[2022-01-05] MEDS ORDERED: fentaNYL 100 MCG/2 ML VIAL IV PRN (14:32)
[2022-01-05] MEDS ORDERED: LACTATED RINGERS 1,000 ML IV SCH (14:45)
[2022-01-05] MEDS ORDERED: POLYETHYLENE GLYCOL 3350 17 GM PACKET PO PRN (14:55)
[2022-01-05] MEDS ORDERED: FLEETS ADULT ENEMA PR PRN (14:55)
[2022-01-05] MEDS ORDERED: BISACODYL 10 MG SUPP.RECT PR PRN (14:55)
[2022-01-05] MEDS ORDERED: TRANEXAMIC ACID 1,000 MG/10 ML VIAL IV SCH (14:55)
[2022-01-05] MEDS ORDERED: ACETAMINOPHEN 325 MG TABLET PO PRN (14:55)
[2022-01-05] MEDS ORDERED: MAGNESIUM HYDROXIDE 30 ML ORAL.SUSP PO PRN (14:55)
[2022-01-05] MEDS ORDERED: HYDROmorphone 1 MG/ML SYRINGE IV PRN (14:55)
--- NOTE | 2022-01-05 14:55 | Brief Operative Note ---
Brief Operative Note Date of procedure: 01/05/22 Pre-op diagnosis: right knee ligamentus laxity Post-op diagnosis: same Procedure: right knee revision of one component Grafts/Implants: Yes Anesthesia: GETA Findings: Right tka loose Complications: none Surgeon: Craig Larsen Bicycle Ii Assembler: Israel Aguilar Estimated blood loss (cc): 41 Tourniquet Time (Minutes): 20 Specimens Removed/Pathology: none sent Condition: stable Disposition: PACU
[2022-01-05] MEDS ORDERED: ceFAZolin 1 GM VIAL IV SCH (15:00)
--- NOTE | 2022-01-05 15:29 | Operative Note ---
DATE OF OPERATION: 01/05/2022 PREOPERATIVE DIAGNOSIS: Right knee ligamentous laxity and loosening over several years. POSTOPERATIVE DIAGNOSIS: Right knee ligamentous laxity and loosening over several years. PROCEDURE: Right total knee arthroplasty revision of a poly liner from a size 11 mm thick to a size 16 mm thick poly on a 3 mm tibial baseplate and removal of a spur. SURGEON: Craig Larsen M.D. SEAM RUBBER: Israel Aguilar PA-C. The PA's assistance was required for the safe and efficient completion of the entire case. This provider's expertise and technical skill were required throughout the case. The PA assisted with preoperative coordination, intraoperative retraction, wound closure, dressing and splint application, as well as postoperative documentation and care coordination. ANESTHESIA: General LMA anesthesia. COMPLICATIONS: None. TOURNIQUET TIME: 20 minutes at 250 pounds of pressure. DISPOSITION: To PACU. DESCRIPTION OF PROCEDURE: The patient was brought to the operating room, put to sleep with general LMA anesthesia. Once asleep, the patient had the right leg confirmed as the operative site in a timeout. Ioban being placed over the skin. Tourniquet inflated to 250 pounds of pressure. A midline incision through a prior scar was made. We elevated the soft tissue layer and then made a vastus medialis approach. This medial approach exposed the joint, showing secure tibial baseplate size 3, size 3 femur, and 11 mm deep dish poly with a cruciate-retained design. The poly was removed and its locking pin. We thoroughly irrigated and then evaluated the joint. We removed some soft tissue. Laterally there was a spur noted and exposed. Using an osteotome and a rongeur, a 1 x 3 mm spur laterally was removed at the capsular attachment. We irrigated thoroughly and then we trialed the size 14 and then a 16 mm poly. The size 16 seemed to be the most appropriate, still giving her full motion yet stopping some of the hypermobility of the knee. We irrigated thoroughly and then placed a size 16 mm deep dish poly highly cross-linked. This was then tapped into place. We then closed the midvastus approach with #1 Stratafix x2, closed the skin with Stratafix and adhesive closure. Tourniquet time was 20 minutes. Blood loss was 40 mL. No complications were noted. ESTEVAN:deric Job ID: [id number] Doc ID: [id number] Craig Larsen MD
--- NOTE | 2022-01-05 15:40 | XRay Report ---
HISTORY: Postop right knee arthroplasty FINDINGS: There is a well positioned total knee prosthesis. Along the posterior aspect of the intercondylar notch there is a 5 x 7 mm bone chip. IMPRESSION: Intra-articular calcification Interpreted and Authenticated by: Jerson Mirza 01/05/22
[2022-01-05] MEDS: 0.45 % SODIUM CHLORIDE 1,000 ML IV SCH (16:07)
[2022-01-05] MEDS: FERROUS SULFATE 325 MG TABLET PO SCH (17:18)
[2022-01-05] MEDS: HYDROcodone/APAP 10/325MG TABLET PO PRN (17:50)
[2022-01-05] MEDS ORDERED: ACETAMINOPHEN/DIPHENHYDRAMINE 1 TABLET PO SCH (21:00)
[2022-01-05] MEDS ORDERED: ATORVASTATIN 10 MG TABLET PO SCH (21:00)
[2022-01-05] MEDS ORDERED: TEMAZEPAM 15 MG CAPSULE PO PRN (21:00)
[2022-01-05] MEDS ORDERED: SENNOSIDES 1 TABLET PO SCH (21:00)
[2022-01-05] MEDS: DOCUSATE SODIUM 100 MG CAPSULE PO SCH (21:12)
[2022-01-05] MEDS: ASPIRIN 81 MG TAB.CHEW PO SCH (21:12)
[2022-01-05] MEDS: ceFAZolin 1 GM VIAL IV SCH (21:12)
[2022-01-05] MEDS: METOPROLOL TARTRATE 25 MG TABLET PO SCH (21:13)
[2022-01-05] MEDS: cloNIDine HCL 0.1 MG TABLET PO SCH (21:13)
[2022-01-05] MEDS: 0.9 % SODIUM CHLORIDE 10 ML SYRINGE IV SCH (21:14)
[2022-01-06] MEDS: 0.45 % SODIUM CHLORIDE 1,000 ML IV SCH ×2 (02:50→11:54)
[2022-01-06] MEDS: ceFAZolin 1 GM VIAL IV SCH (04:50)
[2022-01-06] MEDS: HYDROcodone/APAP 10/325MG TABLET PO PRN ×2 (04:51→12:29)
[2022-01-06] MEDS: 0.9 % SODIUM CHLORIDE 10 ML SYRINGE IV SCH (05:25)
--- NOTE | 2022-01-06 06:59 | Orthopedic Progress Note ---
SUBJECTIVE Subjective Patient information: Note initiated : 01/06/22 at 6:58 am Service Date, if different from initiated Date: [] Patient: Melodie Gaspar 71 y/o F admitted on 01/05/22 for right total knee revision. Chief Complaint: [Pt is stable this morning on post operative day without any significant concerns or complaints. Patients vital signs have remained stable. Patients dressing is dry and is grossly intact from a neurovascular and motor standpoint. Patients 10 point ROS is otherwise negative. ] Constitutional Vitals: Vital Signs Temp Pulse Resp BP Pulse Ox O2 Del Method O2 Flow Rate 98.0 F 53 L 18 95/53 92 1 01/06/22 04:46 01/06/22 04:46 01/06/22 04:46 01/06/22 04:46 01/06/22 04:46 01/06/22 04:46 01/05/22 17:19 Period Temp Pulse Resp BP Sys/He Pulse Ox O2 Del Method O2 Flow Rate Last 24 Hr 96.7 F-98.5 F 48-93 12-18 91-149/53-89 90-100 Nasal Cannula- Room Air 0-6 Intake and Output 01/05/22 01/06/22 01/06/22 21:59 05:59 13:59 Intake Total 2200 1150 Output Total 500 400 Balance 1700 750 Weight 217 lb 11.2 oz Intake & Output: Intake & Output 01/05/22 01/06/22 01/06/22 21:59 05:59 13:59 Intake Total 2200 1150 Output Total 500 400 Balance 1700 750 Weight 217 lb 11.2 oz Intake: IV 50 1000 Sodium Chloride 0.45% 1,000 ml 1000 @ 100 mls/hr IV .Q10H MAGDA Rx#: [id number] Ancef 2 gm In Dextrose 5% in 50 Water 50 ml @ 100 mls/hr IV PREOP MAGDA Rx#:[id number] Oral 800 150 Tube Feeding 250 IV - Manual Only 1100 Output: Void Amount 500 400 Other: Urine Appearance Clear Clear Urine Color Yellow Dark Yellow Urine Odor Normal Extremities Exam Extremities exam: Present normal capillary refill, normal inspection, Foot pink and warm and neurovascular intact OBJ DATA Labs CBC & Chem 7: 01/06/22 05:29 12/30/21 11:45 Meds: Medications Acetaminophen (Acetaminophen 325 Mg Tablet) 650 mg PO Q6HP PRN; Protocol PRN Reason: Per Pain Protocol/Fever > 101 Hydrocodone Bitart/Acetaminophen (Hydrocodone/Apap 10/325mg Tablet) 1 - 2 tab PO Q4HP PRN; Protocol PRN Reason: Per Pain Protocol Last Admin: 01/06/22 04:51 Dose: 1 tab Alendronate Sodium (Alendronate Sodium 70 Mg Tablet) 70 mg PO SA@0730 [facility] Allopurinol (Allopurinol 100 Mg Tablet) 100 mg PO DAILY [facility] Ascorbic Acid (Ascorbic Acid 250 Mg Tablet) 500 mg PO DAILY [facility] Aspirin (Aspirin 81 Mg Tab.Chew) 81 mg PO BID [facility] Last Admin: 01/05/22 21:12 Dose: 81 mg Atorvastatin Calcium (Atorvastatin 10 Mg Tablet) 5 mg PO HS [facility] Last Admin: 01/05/22 21:13 Dose: 5 mg Bisacodyl (Bisacodyl 10 Mg Supp.Rect) 10 mg KS Q2-3DAYS PRN PRN Reason: Constipation Calcium Carbonate/Glycine (Calcium (Oyster Shell) 500 Mg Tablet) 1,000 mg PO DAILY [facility] Clonidine HCl (Clonidine Hcl 0.1 Mg Tablet) 0.1 mg PO BID [facility] Last Admin: 01/05/22 21:13 Dose: 0.1 mg Docusate Sodium (Docusate Sodium 100 Mg Capsule) 100 mg PO BID [facility] Last Admin: 01/05/22 21:12 Dose: 100 mg Ferrous Sulfate ([facility] 325 Mg Tablet) [facility] Last Admin: 01/05/22 17:18 Dose: 325 mg Furosemide (Furosemide 20 Mg Tablet) 40 mg PO DAILY [facility] Hydromorphone HCl (Hydromorphone 1 Mg/Ml Syringe) 0.5 - 2 mg IV Q2HP PRN; Protocol PRN Reason: Per Pain Protocol Sodium Chloride (Sodium Chloride 0.45%) 1,000 mls @ 100 mls/hr IV .Q10H [facility] Last Infusion: 01/06/22 02:50 Dose: Infused Iron Carb/Multivit/[place]/Folic Acid (Multivit,Ther Iron,Ca,Fa & Min 1 Tablet) 2 tab PO DAILY [facility] Magnesium Hydroxide (Magnesium Hydroxide 30 Ml Oral.Susp) 30 ml PO BIDP PRN PRN Reason: Constipation Metoprolol Tartrate (Metoprolol Tartrate 25 Mg Tablet) 25 mg PO BID [facility] Last Admin: 01/05/22 21:13 Dose: 25 mg Ondansetron HCl (Ondansetron 4 Mg/2 Ml Vial) 4 mg IV Q4HP PRN PRN Reason: Nausea And Vomiting Polyethylene Glycol (Polyethylene Glycol 3350 17 Gm Packet) 17 gm PO DAILYP PRN PRN Reason: Constipation Potassium Chloride (Potassium Chloride 20 Meq Tablet) 20 meq PO QAC [facility] Psyllium Hydrophilic Mucilloid (Psyllium Husk 6 Gm Packet) 6 gm PO DAILY [facility] Senna (Sennosides 1 Tablet) 2 tab PO HS [facility] Last Admin: 01/05/22 21:13 Dose: 2 tab Sodium Biphosphate/Sodium Phosphate (Fleets Adult Enema) 1 dose KS Q3-4DAYS PRN PRN Reason: Constipation Sodium Chloride (0.9 % Sodium Chloride 10 Ml Syringe) 10 ml IV Q8 [facility] Last Admin: 01/06/22 05:25 Dose: Not Given Temazepam (Temazepam 15 Mg Capsule) 15 mg PO HSP PRN PRN Reason: Insomnia Last Admin: 01/05/22 21:13 Dose: 15 mg Vitamin D (Vitamin D3 25 Mcg Tablet) 50 mcg PO DAILY MAGDA A/P Narrative A/P Narrative: The patient has been educated regarding dressing care, , restrictions, and follow up appointments. The patient has had all necessary DME prescribed. The patient has remained relatively stable during their hospital course. Time Spent With Patient Time: Total time spent is greater than 50% in coordination of care (as documented) at patient's floor/unit and/or counseling patient: Total time spent with greater than 50% in coordination of care (as documented) at patient's floor/unit and/or counseling patient:: less than 15 minutes Critical Care Time: No
[2022-01-06] MEDS ORDERED: POTASSIUM CHLORIDE 20 MEQ TABLET PO SCH (08:00)
[2022-01-06] MEDS: ASPIRIN 81 MG TAB.CHEW PO SCH (08:33)
[2022-01-06] MEDS: FERROUS SULFATE 325 MG TABLET PO SCH (08:33)
[2022-01-06] MEDS: METOPROLOL TARTRATE 25 MG TABLET PO SCH (08:34)
[2022-01-06] MEDS: DOCUSATE SODIUM 100 MG CAPSULE PO SCH (08:35)
[2022-01-06] MEDS: cloNIDine HCL 0.1 MG TABLET PO SCH (08:35)
[2022-01-06] MEDS ORDERED: ACETAMINOPHEN 500 MG TABLET PO SCH (09:00)
[2022-01-06] MEDS ORDERED: MULTIVIT,THER IRON,CA,FA & MIN 1 TABLET PO SCH (09:00)
[2022-01-06] MEDS ORDERED: ALLOPURINOL 100 MG TABLET PO SCH (09:00)
[2022-01-06] MEDS ORDERED: PSYLLIUM HUSK 6 GM PACKET PO SCH (09:00)
[2022-01-06] MEDS ORDERED: VITAMIN D3 25 MCG TABLET PO SCH (09:00)
[2022-01-06] MEDS ORDERED: ASCORBIC ACID 250 MG TABLET PO SCH (09:00)
[2022-01-06] MEDS ORDERED: CALCIUM (OYSTER SHELL) 500 MG TABLET PO SCH (09:00)
[2022-01-06] MEDS ORDERED: FUROSEMIDE 20 MG TABLET PO SCH (09:00)
[2022-01-07] MEDS ORDERED: ASCORBIC ACID 500 MG TABLET PO SCH (09:00)
[2022-01-10] MEDS ORDERED: ALENDRONATE SODIUM 70 MG TABLET PO SCH (07:30)
== END 2022-01-06 13:30 | disposition home or self-care (01) | DRG 489 ==
LOC: MEDSUR 11:48
PROVIDERS: ADMIT Orthopaedic Surgery; ATTEND Orthopaedic Surgery